=== PATIENT | female | born 1955 | race Caucasian/White ===

== ENCOUNTER → 2016-04-20 | Outpatient (CLI) | payer BC ==
[2014-02-15 15:44] VITALS: BP 120/65
[~2016-04-20] MED LIST: ASPI81TA50 PO; ATOR40TA59 PO; CEFU500T PO; CHOL10003 PO; FERR-26 PO; FURO-68 PO; LEVO150T PO; METO100T5 PO; NABU750T PO; NIFE30TA38 PO; OXYC-323 PO; PRAV80TA2 PO; WARF5TAB PO
--- NOTE | 2016-04-20 14:54 | EKG ---
[facility] [address] [place] [address] Test Date: 2016-04-20 Test Time: 15:01:05 Pat Name: LEON RUSS Department: Room: Gender: F Global Clinical Leader: JOHANA : 1955 Requested By: AIME CASILLAS Order Number: [id number] Reading MD: Tyler Tian Measurements Intervals [place] Rate: 70 P: 8 FL: 168 QRS: -10 QRSD: 84 T: -16 QT: 366 QTc: 398 Interpretive Statements SINUS RHYTHM CONSISTENT WITH INFERIOR INFARCT, probably old. Electronically Signed On 04-23-2016 14:32:58 LPN PRIVATE DUTY by Tyler Tian
[2016-04-20 15:28] LABS: BASO # 0.1 x10^3/uL (0.0-0.2); BASO % 1 % (0-3); EOS % 2 % (0-3); HEMATOCRIT 45.3 % (36.0-47.0); HEMOGLOBIN 14.3 g/dL (12.0-15.5); LYMPH # 2.8 x10^3/uL (1.0-4.8); LYMPH % 29 % (24-48); MEAN CORPUSCULAR HEMOGLOBIN 27 pg (25-35); MEAN CORPUSCULAR HGB CONC 32 g/dL (31-37); MEAN CORPUSCULAR VOLUME 87 fL (79-100); MONO % 9 % (0-9); NEUT % 60 % (31-73); PLATELET COUNT 267 x10^3/uL (140-400); RED BLOOD COUNT 5.22 x10^6/uL (3.50-5.40); RED CELL DISTRIBUTION WIDTH 15.1 % (11.5-14.5); WHITE BLOOD COUNT 9.6 x10^3/uL (4.0-11.0)
[2016-04-20 15:31] LABS: ALBUMIN 4.5 g/dL (3.4-5.0); CREATININE 1.3 mg/dL (0.6-1.0); GFR 41.5; POTASSIUM 3.9 mmol/L (3.5-5.1)
[2016-04-20 15:34] LABS: BILIRUBIN,URINE NEGATIVE (NEG); GLUCOSE,URINE NEGATIVE (NEG); NITRITE,URINE NEGATIVE (NEG); PH,URINE 5.5; PROTEIN,URINE NEGATIVE (NEG-TRACE); UROBILINOGEN,URINE 0.2 mg/dL (0.2 mg/dL)
[2016-04-20 15:39] LABS: PROTHROMBIN TIME PATIENT 12.8 SEC (11.7-14.0)
[2016-04-20 15:47] LABS: BACTERIA,URINE FEW /HPF (0-FEW); RBC,URINE 0 /HPF (0-2); SQUAMOUS EPITHELIAL CELL,UR FEW /LPF
--- NOTE | 2016-04-20 16:31 | RAD ---
INDICATION: Preoperative evaluation for surgery COMPARISON: None. FINDINGS: Single view of chest obtained. No focal airspace consolidation. Mediastinal contour is unremarkable. No gross osseous destructive lesion. Leads are seen within the central canal within the thoracic region. Degenerative changes of spine. Calcific atherosclerosis. IMPRESSION: No focal airspace consolidation or edema.
== END | disposition home or self-care (01) ==
LOC: SURGPAT 13:41
PROVIDERS: ATTEND Orthopaedic Surgery
DX: Z01.818 Encounter for other preprocedural examination (principal); M17.11 Unilateral primary osteoarthritis, right knee; M47.899 Other spondylosis, site unspecified; I70.90 Unspecified atherosclerosis; Z96.651 Presence of right artificial knee joint
CPT/HCPCS: 36415; 71020; 80048; 81001; 82040; 85027; 85610; 85730; 87086; 87641; 93005

== ENCOUNTER → 2016-05-12 | Outpatient (CLI) | payer BC ==
[~2016-05-12] MED LIST changes: +ASPI325T11 PO
--- NOTE | 2016-05-12 11:34 | CARD ---
APPROVED REPORT EXAM: Two-dimensional and M-mode echocardiogram with Doppler and color Doppler. Other Information Quality : Average Rhythm : NSR INDICATION Cardiac Disease: CAD 2D DIMENSIONS RVDd2.8 (2.9-3.5cm)Left Atrium(2D)3.5 (1.6-4.0cm) IVSd1.1 (0.7-1.1cm)Aortic Root(2D)2.7 (2.0-3.7cm) LVDd4.5 (3.9-5.9cm)LVOT Diameter2.0 (1.8-2.4cm) PWd1.0 (0.7-1.1cm)LVDs3.3 (2.5-4.0cm) FS (%) 26.0 %SV47.3 ml LVEF(%)51.2 (>50%) Aortic Valve AoV Peak Shay.149.1cm/sAoV VTI27.6cm AO Peak GR.8.9mmHgLVOT Peak Shay.95.4cm/s LVOT VTI 20.53cmAO Mean GR.5mmHg ANNELIESE (VMAX)2.45kt6GCL (VTI)2.35cm2 Mitral Valve MV E Oxzwxfbj64.3cm/sMV DECEL CMFY993gr MV A Suudcsus04.8cm/sMV E Mean Gr.2mmHg MV SYW02laB/A Ratio0.7 MV A Ezitlbxj442wdTFI (PHT)2.77cm2 TDI E/Lateral E'9.2E/Medial E'6.7 Pulmonary Valve PV Peak Bvfexozt068.6cm/sPV Peak Grad.4mmHg RVOT VTI19.4cm Tricuspid Valve TR P. Gyaleetb133qc/sRAP JWBNEHKD1kiGx TR Peak Gr.32dzIdBCNG44acNr Pulmonary Vein S1 Gyzacssd49.3cm/sD2 Mzgujray46.1cm/s LEFT VENTRICLE The left ventricle is normal size. There is borderline concentric left ventricular hypertrophy. Left ventricle systolic function is normal. The Ejection Fraction is 50-55%. There is normal LV segmental wall motion. Tissue Doppler imaging reveals mild left ventricular diastolic dysfunction. Transmitral Doppler flow pattern is Grade I-abnormal relaxation pattern. RIGHT VENTRICLE The right ventricle is normal size. The right ventricular systolic function is normal. ATRIA The left atrium size is normal. The right atrium size is normal. The interatrial septum is intact wit h no evidence for an atrial septal defect or patent foramen ovale as noted on 2-D or Doppler imaging. AORTIC VALVE The aortic valve is normal in structure and function. The aortic valve is trileaflet. Doppler and Col or Flow revealed no significant aortic regurgitation. There is no significant aortic valvular stenosi s. MITRAL VALVE The mitral valve is normal in structure and function. There is no mitral valve stenosis. Doppler and Color Flow revealed no mitral valve regurgitation noted. TRICUSPID VALVE The tricuspid valve is not well visualized. Doppler and Color Flow revealed mild tricuspid regurgitat ion. The PA pressure was estimated at 40 mmHg. There is no tricuspid valve stenosis. PULMONIC VALVE The pulmonic valve is not well visualized. Doppler and Color Flow revealed no pulmonic valvular regur gitation. There is no pulmonic valvular stenosis. GREAT VESSELS The aortic root is normal in size. Normal pulmonary venous flow (Doppler). The IVC is normal in size and collapses >50% with inspiration. PERICARDIAL EFFUSION There is no evidence of significant pericardial effusion. Critical Notification Critical Value: No <Conclusion> The left ventricle is normal size. Left ventricle systolic function is normal. The Ejection Fraction is 50-55%. There is borderline concentric left ventricular hypertrophy. There is no significant aortic valvular stenosis. Doppler and Color Flow revealed no significant aortic regurgitation. Doppler and Color Flow revealed no mitral valve regurgitation noted. Doppler and Color Flow revealed mild tricuspid regurgitation. The PA pressure was estimated at 40 mmHg.
== END | disposition home or self-care (01) ==
LOC: ECHO 10:00
PROVIDERS: ATTEND Internal Medicine Cardiovascular Disease
DX: I25.10 Atherosclerotic heart disease of native coronary artery without angina pectoris (principal); I07.1 Rheumatic tricuspid insufficiency
CPT/HCPCS: 93306

== ENCOUNTER 2016-05-13 08:04 | Inpatient (IN) | payer BC ==
--- NOTE | 2016-05-12 11:26 | PDOC1 ---
History and Physical Date of Admission Date of Admission DATE: 05/13/16 Identification/Chief Complaint Chief Complaint right knee osteoarthritis pain Source Source: Chart review History of Present Illness History of Present Illness Lucinda has come into the office today with concerns regarding her Right Knee pain. She has been experiencing pain in that right knee for many years. Over the years is has become increasingly worse. She has pain in her medial right knee. The pain is constant when she is walking. Sitting does feel better. Stairs are very difficult. She is stiff early in the morning, but has not noticed any change in her pain with the weather. The pain begins in the medial Right knee however seems to radiate throughout her entire leg. She has tried to alleviate the pain with anti-inflammatory medications with some relief but not a lot. She takes Relafen. She finished a series of Orthovisc injections into the right knee with Dr. Vega in 2009. She had injections in her right knee with Dr. Pastor years ago. She has a history of Left Total Knee Arthroplasty in 2013. Past Medical History Cardiovascular: HTN, Hyperlipidemia Endocrine: Hypothyroidism Past Surgical History Past Surgical History: Cholecystectomy, Total knee replacement (left - 2003), Other (L5-S1 fusion-2014, spinal column stimulator-2006) Family History Family History: Alzheimer's Disease, Cancer (leukemia), Stroke Social History Smoke: No ALCOHOL: none Drugs: None Current Medications Current Medications Current Medications Morphine Sulfate/ Ketorolac Tromethamine/ Ropivacaine/ Epinephrine HCl/ Sodium Chloride (Morphine 5mg Syringe/Toradol/ Naropin 0.5%/ Adrenalin/Iv Sodium Chloride 0.9% 100ml) 100.5 ml @ 100.5 mls/ hr 1X PERIOP ONCE INT ART ; Start 05/13/16 at 06:00; Stop 05/13/16 at 06:59 Active Scripts Active Reported Atorvastatin Calcium 40 Mg Tablet 1 Tab PO DAILY Lasix (Furosemide) 40 Mg Tablet 40 Mg PO DAILY Last dose given: 8:30 a.m. Next dose due: 02-16-14 8:30 a.m. Ferrous Sulfate 325 Mg Tablet 325 Mg PO BID Last dose given: 8:30 a.m. Next dose due: Take with next meal Continue taking until follow-up appt. with Dr. Duarte (Aspirin) 81 Mg Tablet.dr 81 Mg PO HS Last dose given: 8:30 a.m. Next dose due: 02-16-14 8:30 a.m. Adalat Cc (Nifedipine) 30 Mg Tablet.er 90 Mg PO HS Last dose given: 02-15-14 9:00 p.m. Next dose due: Tonight Synthroid (Levothyroxine Sodium) 150 Mcg Tablet 150 Mcg PO HS Last dose given: 01-16-14 9:00 p.m. Next dose due: Tonight Nabumetone 750 Mg Tablet 750 Mg PO HS Last dose given: 01-16-14 9:00 p.m. Next dose due: Tonight Toprol Xl (Metoprolol Succinate) 100 Mg Tab.er.24h 200 Mg PO HS Last dose given: 01-16-14 9:00 p.m. Next dose due: Tonight Allergies Allergies: Coded Allergies: Sulfa (Sulfonamide Antibiotics) (Verified Allergy, Intermediate, HIVES, ) Physical Exam General: Alert, Oriented X3, Cooperative, No acute distress HEENT: Atraumatic, EOMI Lungs: Normal air movement Heart: RRR Abdomen: Soft Extremities: No clubbing, No cyanosis, Normal pulses, Other (The RIGHT knee shows her flexed knee gait (she keeps the right knee in flexion throughout the gait cycle). There is varus alignment. No masses. No detectable effusion. Tenderness on the joint lines. Range of motion is 5-115 degrees. There is crepitus with range of motion, and pain at the extremes of motion. The knee is stable to varus and valgus stress without subluxation or laxity. Muscle strength is normal (5/5) for quadriceps and hamstrings, and muscle tone is normal. The skin is normal with no scars, rashes, lesions or ulcers. Light touch sensation is intact. No edema and no varicosities. Dorsalis pedis pulse is intact and capillary refill is normal.The LEFT knee shows normal alignment, no masses and no effusion. No tenderness to palpation. Range of motion is 0-120 degrees, with typical total knee crepitus but no pain at the extremes of motion. The knee is stable to varus and valgus stress without subluxation or laxity. Muscle strength is normal (5/5) for quadriceps and hamstrings, and muscle tone is normal. The extensor mechanism is intact. The skin shows a well- healed midline scar from total knee arthroplasty. No drainage lesions or ulcers. Light touch sensation is intact. No edema and no varicosities. Dorsalis pedis pulse is intact and capillary refill is normal. ) Skin: No rashes, No breakdown, No significant lesion Neuro: Normal speech, Sensation intact Psych/Mental Status: Mental status NL, Mood NL Images Images IMAGING REPORT 45 PA weightbearing view of both knees, lateral, and patella view of the right knee. Clinical information: Chronic right knee pain Comparison : 2014 Findings Bones: Left total knee is present. No evidence of loosening, subsidence or other complication. The patella has been resurfaced. Joints: The right knee shows moderate to severe osteoarthritis with narrowing sclerosis and osteophyte formation. There are moderate multiple osteophytes, and all three compartments are affected. There is sclerosis. These are Kellgren Ivan grade 3 osteoarthritis changes. This has progressed slightly since 2014. Soft tissue: Normal. Impression: Severe osteoarthritis of the right knee. Left total knee arthroplasty which is unremarkable. Dictated and Signed Using Voice Recognition Software Jac Lindsey MD. IMAGING REPORT Joint survey, hips knees and ankles Clinical information: Preoperative for total knee arthroplasty Comparison: 2014 Findings Bones: The left knee had severe varus alignment in 2014 but now has a total knee arthroplasty in near-anatomic position. Spinal hardware is noted in the lumbar spine, and was present in 2014. The angle between the right hip-ankle mechanical axis and the femoral shaft is 5. The angle between the left hip- ankle mechanical axis and the femoral shaft is 5. The mechanical axis crosses medial to the center of the right knee indicating varus alignment. The mechanical axis crosses near the center, slightly medial of the left knee indicating proper or trace varus mechanical alignment. Joints: There is narrowing of the right knee joint medially. The left knee prosthetic joint shows normal joint spaces. The hips and ankles show minimal degenerative changes. Soft tissue: Normal. Impression: Varus alignment of the right knee. The difference between the mechanical axis and femoral shaft anatomic axis is 5 bilaterally. Dictated and Signed Using Voice Recognition Software Jac Lindsey MD VTE Prophylaxis Ordered VTE Prophylaxis Devices: Yes VTE Pharmacological Prophylaxi: Yes Assessment/Plan Assessment/Plan Dr. Lindsey and the patient discussed her knee pain and knee osteoarthritis. She has tried nonoperative treatment for some time now with injections, oral anti- inflammatories and she did do some physical therapy for the right knee when she had her left knee replaced. She is currently taking Relafen anti-inflammatory. Dr. Lindsey recommend total knee arthroplasty, due to her severe osteoarthritis, knee pain, and markedly abnormal gait. We discussed the risks and benefits of total knee arthroplasty, and the natural history of osteoarthritis of the knee. We discussed weight loss which would be beneficial to her knee. Her BMI is 37.4 , which seems safe enough to tolerate surgery. Perioperative risks would likely be high-risk for BMI greater than 40 (which it is not). We discussed the potential risks of infection, neurovascular injury, bleeding, blood clots, need for revision surgery, malalignment of the prosthesis, and even severe complications leading to amputation. We discussed anesthetic risks and the usual perioperative workup. She stated understanding of the risks, benefits, alternatives and desires to proceed with a right total knee arthroplasty at a mutually convenient date. She will need physical therapy postoperatively, to learn to walk normally again. Her is going to help her at home postoperatively. EVIN CANDELARIO May 12, 2016 11:26
[~2016-05-13] VITALS: Ht 167.6 cm; Wt 105.7 kg
[2016-05-13] VITALS (7 sets, daily range): BP systolic 134–171; BP diastolic 75–97
[~2016-05-13 08:04] MED LIST changes: -ASPI325T11 PO; +CEFAZOLIN 2GM PREMIX 50 ML IV PRN; +FENTANYL PF 100 MCG/2 ML VIAL. IV PRN; +HYDROCODONE/APAP 7.5/325MG TABLET. PO PRN; +HYDROMORPHONE 2 MG/ML VIAL. IV PRN; +IV RINGERS,LACTATED 1000ML 1,000 ML IV SCH; +LIDOCAINE 1% 1 ML SYRINGE. ID PRN; +MELOXICAM 7.5 MG TABLET PO PRN; +MORPHINE SULFATE 5 MG, KETOROLAC TROMETHAMINE 30 MG, ROPIVacaine 0.5% PF 60 ML, EPINEPH... INT ART ONE; +ONDANSETRON PF 4 MG/2 ML VIAL. IV PRN; +PROCHLORPERAZINE 10 MG/2 ML VIAL. IV PRN; +TRANEXAMIC ACID 1,000 MG in IV NS 50ML -- 1ST BAG INJ ONE; +TRANEXAMIC ACID 1,000 MG in IV NS 50ML -- 2ND BAG INJ ONE
[2016-05-13] MEDS ORDERED: FENTANYL PF 100 MCG/2 ML VIAL. ONE (09:48)
[2016-05-13] MEDS ORDERED: ONDANSETRON PF 4 MG/2 ML VIAL. ONE (09:48)
[2016-05-13] MEDS ORDERED: MIDAZOLAM HCL 2 MG/2 ML VIAL. ONE (09:48)
[2016-05-13] MEDS ORDERED: LIDOCAINE 2% 100 MG/5 ML DISP.SYRIN. ONE (09:48)
[2016-05-13] MEDS ORDERED: PROPOFOL 20 ML IV ONE (09:48)
[2016-05-13] MEDS ORDERED: DEXAMETHASONE SOD PHOS 20 MG/5 ML VIAL. ONE (09:48)
[2016-05-13] MEDS ORDERED: SEVOFLURANE 61 TO 120 MINUTES. IH ONE (09:48)
[2016-05-13] MEDS ORDERED: SCOPOLAMINE 1.5MG PATCH. TD SCH (10:27)
[2016-05-13] MEDS ORDERED: VANCOMYCIN 1 GM VIAL. ONE (12:35)
[2016-05-13] MEDS ORDERED: TOBRAMYCIN POWDER 1.2 GM VIAL. ONE (12:35)
--- NOTE | 2016-05-13 12:53 | PDOC4 ---
Operative Note Operative Note Date of Procedure: May 13, 2016 Pre-Op Diagnosis: Osteoarthritis right knee Post-Op Diagnosis: Osteoarthritis right knee Procedure: right total knee arthroplasty Surgeon: Aime Lindsey MD Ribbon Winder: Thania Jenkins PA-C Anesthesia: General EBL: 100 mL Specimens Obtained: right knee bone and soft tissue Complications: none Implant Company: [employer] Drains: Hemovac plus pain catheter Tourniquet time: 62 minutes Indications for Procedure: Arthritis pain unrelieved by nonoperative management. Findings: Severe osteoarthritis with bone on bone contact medially and at the patellofemoral joint Implants used: Size 4 right bicruciate stabilized Journey II BCS cobalt chrome femoral component, size 4 right Journey nonporous tibial baseplate, size 3-4 18 mm right Journey II BCS XLPE articular insert, 29 mm oval Zabrina II resurfacing patellar component Procedure in Detail: The patient was identified in the preoperative holding area, and the correct right extremity was marked by me. The patient was taken to the operating room where the patient was anesthetized by the Department of Anesthesia. Preoperative antibiotics were given intravenously. Tranexamic acid 1 g was given intravenously for intraoperative hemostasis. A "time-out" procedure was performed. The patient was positioned supine on the operative table with a tourniquet on the upper thigh. The limb was thoroughly prepped and draped in sterile fashion. An impervious stockinet and adhesive drape were used such that the skin was entirely covered. An Ellis leg isabel was used. The operating team wore personal exhaust-ventilated hoods. The tourniquet was inflated to 350 mm Hg. A midline skin incision was made with a scalpel using the patella and tibial tubercle as landmarks. Electrocautery was used for hemostasis. My carpenter assistant installer used rake retractors. A medial parapatellar arthrotomy incision was used with extension into the distal quadriceps tendon. The patella was retracted laterally and Hohmann retractors were now used by my carpenter assistant installer. Excess synovium, the menisci, and the cruciate ligaments were resected sharply. The patella was assessed and excess synovium and osteophytes around the patellar articulation were removed. The patella was measured with a caliper, cut freehand with a saw using caliper measurements, sized, and then drilled for an oval three-pegged patella component. Periarticular injection was used in the suprapatellar pouch and distal quadriceps muscle. Mirza's line was assessed on the femur. An intra-medullary 5 degree cutting guide was pinned to the femur, and a distal femoral cut was made with an oscillating saw. An additional 2 mm resection was used due to the deep femoral sulcus, and deficient condyle.My carpenter assistant installer held Hohmann retractors and an [facility] retractor to protect the medial and lateral collateral ligaments, the patellar tendon, the skin and the other soft tissues. An anterior referencing guide was applied with external rotation of 4 to match Whitesides line. A 5-in-1 Journey II cutting guide was then applied and pinned to the femur. The posterior, anterior, and all chamfer cuts were made with the oscillating saw. An extramedullary guide was pinned to the tibia and rotational alignment and the planned resection thickness assessed. An external alignment paulo was used to verify the planned cut in the varus-valgus plane and regarding posterior slope referencing the tibial tubercle, the tibial shaft, the ankle joint, and the second metatarsal. The upper tibia was cut made with an oscillating saw. My carpenter assistant installer held Hohmann retractors and a posterior cruciate ligament retractor to protect the medial and lateral collateral ligaments, the patellar tendon, the skin, the peroneal nerve and the other soft tissues. The upper tibia was sized with a trial baseplate. The posterior compartment was cleared of osteophytes and loose bodies, and posterior capsule released. Loretta-articular injection was used in the posterior compartment. The box cut for a posterior stabilized component was made. A preliminary reduction was performed with a trial femur, trial tibial baseplate and trial polyethylene. Soft-tissue balancing was now performed, and extension and rotation of the alignments was checked using a guide paulo in the tibial trial and a guide pin in the femur. A medial release was required, using a 10 blade scalpel, and a Sanchez elevator to elevate the medial structures from the upper medial tibia. The stability was assessed using different thicknesses of tibial articular surface to find satisfactory stability and good range of motion. The rotation of the tibial component was marked on the upper tibia. Final trial reduction was now performed verifying patella tracking and tibiofemoral stability and alignment. The tibia preparation was completed with a drill, saw, and fin punch at the previously noted rotation. The final implants were verified and opened. Outer gloves were changed by the operating team. The bone cuts were washed thoroughly with the Stevenson InterPulse device and dried. Two packages of Palacos bone cement were mixed in powdered form with 1 gm of Vancomycin and 1.2 g tobramycin, then vacuum-mixed with the monomer, and placed into a cement gun. The cut surfaces of the bone were thoroughly dried with Valencia-tip suction and with laparotomy sponges for cement interdigitation. The final components were cemented into place. The knee was kept at full extension while the cement hardened, and excess cement was removed. Tranexamic acid 1 g was redosed intravenously for additional intraoperative hemostasis. A final periarticular injection was used for pain relief. The tourniquet was released, and electrocautery was used for hemostasis. A final check of tegcg-sg-pdbqog and stability was made, and the polyethylene implant final size was chosen. The polyethylene implant was secured to the tibial baseplate, and the knee was reduced a final time. Thorough irrigation was used. Hemovac and pain catheter were used.The arthrotomy was closed with interrupted yrfela-ol-vhyji #1 PDS suture. The capsulotomy was then run with #1 STRATAFIX symmetric PDS plus. The subcutaneous tissues were closed with #2-0 Vicryl by my carpenter assistant installer. The skin was reapproximated with concha by my carpenter assistant installer. A bulky sterile dressing was applied. Needle and sponge counts were correct. AIME LINDSEY MD May 13, 2016 12:53
[2016-05-13] MEDS ORDERED: MORPHINE PF 5 MG/10 ML VIAL. ONE (12:54)
[2016-05-13] MEDS ORDERED: FENTANYL PF 100 MCG/2 ML VIAL. IV PRN ×2 (13:15)
[2016-05-13] MEDS ORDERED: MORPHINE SULFATE 2 MG/ML DISP.SYRIN. IV PRN (13:15)
[2016-05-13] MEDS ORDERED: METOCLOPRAMIDE HCL 10 MG/2 ML VIAL. IV PRN (13:15)
[2016-05-13] MEDS ORDERED: MORPHINE SULFATE 4 MG/ML DISP.SYRIN. IV PRN ×2 (13:15)
[2016-05-13] MEDS ORDERED: DEXTROSE 50% 25 GM / 50ML DISP.SYRIN. IV PRN (13:15)
[2016-05-13] MEDS ORDERED: OXYCODONE/APAP 5/325 TABLET. PO PRN (13:15)
[2016-05-13] MEDS ORDERED: CALCIUM CARBONATE 500 MG TAB.CHEW PO PRN (13:15)
[2016-05-13] MEDS ORDERED: TRAMADOL 50 MG TABLET. PO PRN ×2 (13:15)
[2016-05-13] MEDS ORDERED: PROCHLORPERAZINE 5 MG TABLET. PO PRN (13:15)
[2016-05-13] MEDS ORDERED: ZOLPIDEM 5 MG TABLET. PO PRN (13:15)
[2016-05-13] MEDS ORDERED: PROCHLORPERAZINE 10 MG/2 ML VIAL. IV PRN (13:15)
[2016-05-13] MEDS ORDERED: DIPHENHYDRAMINE 50 MG/ML VIAL IV PRN (13:15)
[2016-05-13] MEDS ORDERED: ACETAMINOPHEN 325 MG TABLET. PO PRN (13:15)
[2016-05-13] MEDS ORDERED: MORPHINE SULFATE 10 MG/ML VIAL. IV PRN (13:15)
[2016-05-13] MEDS ORDERED: 0.9 % SODIUM CHLORIDE 10 ML DISP.SYRIN. IV PRN (13:15)
[2016-05-13] MEDS: FENTANYL PF 100 MCG/2 ML VIAL. IV PRN ×3 (13:27→14:06)
[2016-05-13] MEDS: MORPHINE SULFATE 2 MG/ML DISP.SYRIN. IV PRN ×3 (13:34→13:59)
--- NOTE | 2016-05-13 14:14 | RAD ---
EXAM: Right knee, 2 views HISTORY: Right knee arthroplasty. COMPARISON: None. FINDINGS: There are changes of tricompartmental arthroplasty in near-anatomic alignment. No fractures are identified. Soft tissue gas, skin concha and a drain are noted. IMPRESSION: 1. Right total knee arthroplasty in expected alignment.
[2016-05-13] MEDS ORDERED: IV DEXTROSE 5 %-0.45 % NACL 1,000 ML IV SCH (15:30)
[2016-05-13] MEDS ORDERED: INFLUENZA VAX SCREEN BY RX. MC ONE (15:45)
[2016-05-13] MEDS: FERROUS SULFATE 325 MG TABLET PO SCH (17:00)
[2016-05-13] MEDS: CEFAZOLIN 2GM PREMIX 50 ML IV SCH ×2 (17:53→23:07)
[2016-05-13] MEDS: KETOROLAC TROMETHAMINE 30 MG, BUPIVACAINE MPF 0.25% 20 ML, EPINEPHRINE 0.5 MG in TOTAL ... INT ART SCH (17:53)
[2016-05-13] MEDS: HYDROCODONE/APAP 7.5/325MG TABLET. PO PRN (17:54)
[2016-05-13] MEDS: ATORVASTATIN CALCIUM 40 MG TABLET. PO SCH (20:52)
[2016-05-13] MEDS: ASPIRIN ENTERIC COATED 325 MG TABLET.DR. PO SCH (20:52)
[2016-05-13] MEDS: NIFEDIPINE ER 30 MG TAB.ER.24H PO SCH (20:53)
[2016-05-13] MEDS: LEVOTHYROXINE 150 MCG TABLET PO SCH (20:53)
[2016-05-13] MEDS: METOPROLOL SUCC 24HR ER 100 MG TAB.ER.24H. PO SCH (20:56)
[2016-05-14 03:26] VITALS: BP 178/69
[2016-05-14] MEDS: CEFAZOLIN 2GM PREMIX 50 ML IV SCH (04:53)
[2016-05-14] MEDS: KETOROLAC TROMETHAMINE 30 MG, BUPIVACAINE MPF 0.25% 20 ML, EPINEPHRINE 0.5 MG in TOTAL ... INT ART SCH (04:54)
[2016-05-14 05:39] LABS: HEMATOCRIT 35.3 % (36.0-47.0); HEMOGLOBIN 11.4 g/dL (12.0-15.5); RED BLOOD COUNT 4.16 x10^6/uL (3.50-5.40); RED CELL DISTRIBUTION WIDTH 15.1 % (11.5-14.5); WHITE BLOOD COUNT 14.5 x10^3/uL (4.0-11.0)
[2016-05-14] MEDS ORDERED: MAGNESIUM HYDROXIDE 2,400 MG/30 ML ORAL.SUSP. PO PRN (06:00)
[2016-05-14 06:06] VITALS: BP 155/74
[2016-05-14] MEDS: FERROUS SULFATE 325 MG TABLET PO SCH ×2 (08:23→16:56)
[2016-05-14] MEDS: SENNOSIDES/DOCUSATE 8.6/50MG TABLET. PO SCH (08:23)
[2016-05-14] MEDS: ASPIRIN ENTERIC COATED 325 MG TABLET.DR. PO SCH ×2 (08:23→20:46)
[2016-05-14] MEDS: MELOXICAM 7.5 MG TABLET PO SCH (08:23)
[2016-05-14] MEDS: MULTIVITAMIN with MINERAL TABLET. PO SCH (08:23)
[2016-05-14] MEDS: HYDROCODONE/APAP 7.5/325MG TABLET. PO PRN ×2 (08:24→16:55)
[2016-05-14] MEDS: FUROSEMIDE 40 MG TABLET PO SCH (08:24)
[2016-05-14] MEDS ORDERED: FLU VACC QUAD 2016-17 (36MOS+)/PF 0.5 ML SYRINGE. VAX IM ONE (09:00)
[2016-05-14] MEDS: HYDROCODONE/APAP 10/325 TABLET. PO PRN (12:30)
[2016-05-14] MEDS ORDERED: BISACODYL 10 MG SUPP.RECT PR PRN (16:00)
--- NOTE | 2016-05-14 16:46 | PDOC ---
PROGRESS NOTES Subjective Subjective Doing well. Pain is controlled. Objective Vital Signs Vital Signs Date Time Temp Pulse Resp B/P Pulse Ox O2 Delivery O2 Flow Rate FiO2 05/14/16 13:30 Room Air 05/14/16 07:20 2.0 05/14/16 06:06 98.8 79 20 155/74 93 98.8 Physical Exam Sitting in recliner with legs elevated and ice pack on knee. Postop dressing dry and intact. Hemovac and pain catheter in place. Calf soft and nontender, with a negative Marce's sign. Good dorsiflexion and plantarflexion with no sign of neurovascular injury. Peripheral pulses and light touch sensation intact. Labs Laboratory Tests Test 05/13/16 08:50 05/14/16 05:20 Erythrocyte Sedimentation Rate 24 (0-25) White Blood Count 14.5x10^3/uL (4.0-11.0) Red Blood Count 4.16x10^6/uL (3.50-5.40) Hemoglobin 11.4g/dL (12.0-15.5) Hematocrit 35.3% (36.0-47.0) Mean Corpuscular Volume 85fL (79-100) Mean Corpuscular Hemoglobin 28pg (25-35) Mean Corpuscular Hemoglobin Concent 32g/dL (31-37) Red Cell Distribution Width 15.1% (11.5-14.5) Platelet Count 231x10^3/uL (140-400) Laboratory Tests Test 05/14/16 05:20 White Blood Count 14.5x10^3/uL (4.0-11.0) Red Blood Count 4.16x10^6/uL (3.50-5.40) Hemoglobin 11.4g/dL (12.0-15.5) Hematocrit 35.3% (36.0-47.0) Mean Corpuscular Volume 85fL (79-100) Mean Corpuscular Hemoglobin 28pg (25-35) Mean Corpuscular Hemoglobin Concent 32g/dL (31-37) Red Cell Distribution Width 15.1% (11.5-14.5) Platelet Count 231x10^3/uL (140-400) Imaging Postoperative x-rays were reviewed and show satisfactory total knee replacement without apparent complications. Assessment Assessment POD #1 TKA Problems: Plan Plan of Care Continue POC including DVT ppx and PT. If rest of stay goes uneventful, patient would like to be discharged tomorrow afternoon to home with outpatient PT. EVIN CANDELARIO May 14, 2016 16:46
[2016-05-14 18:07] VITALS: BP 146/72
[2016-05-14] MEDS: ATORVASTATIN CALCIUM 40 MG TABLET. PO SCH (20:46)
[2016-05-14] MEDS: LEVOTHYROXINE 150 MCG TABLET PO SCH (20:46)
[2016-05-14] MEDS: NIFEDIPINE ER 30 MG TAB.ER.24H PO SCH (20:49)
[2016-05-14] MEDS: METOPROLOL SUCC 24HR ER 100 MG TAB.ER.24H. PO SCH (20:49)
[2016-05-15] MEDS: HYDROCODONE/APAP 7.5/325MG TABLET. PO PRN (00:13)
[2016-05-15 06:00] VITALS: BP 113/61
[2016-05-15] MEDS: MULTIVITAMIN with MINERAL TABLET. PO SCH (07:29)
[2016-05-15] MEDS: FUROSEMIDE 40 MG TABLET PO SCH (07:29)
[2016-05-15] MEDS: FERROUS SULFATE 325 MG TABLET PO SCH (07:29)
[2016-05-15] MEDS: MELOXICAM 7.5 MG TABLET PO SCH (07:29)
[2016-05-15] MEDS: ASPIRIN ENTERIC COATED 325 MG TABLET.DR. PO SCH (07:29)
[2016-05-15] MEDS: HYDROCODONE/APAP 10/325 TABLET. PO PRN (07:30)
[2016-05-15] MEDS: SENNOSIDES/DOCUSATE 8.6/50MG TABLET. PO SCH (07:30)
[2016-05-15 11:09] LABS: HEMATOCRIT 33.3 % (36.0-47.0); HEMOGLOBIN 10.8 g/dL (12.0-15.5)
--- NOTE | 2016-05-15 12:16 | PDOC ---
PROGRESS NOTES Subjective Subjective Doing well. Having a better day today than yesterday regarding pain. Happy to be going home today. Objective Vital Signs Vital Signs Date Time Temp Pulse Resp B/P Pulse Ox O2 Delivery O2 Flow Rate FiO2 05/15/16 08:30 Room Air 05/15/16 07:40 2.0 05/15/16 06:00 98.6 95 20 113/61 96 98.6 Physical Exam Expected swelling. Pain catheter and drain have been removed. Dressing with spotty drainage only. Calf soft and nontender. Negative homans sign. Good AROM ankle. Peripheral pulses and light touch sensation intact. Labs Laboratory Tests Test 05/14/16 05:20 05/15/16 10:50 White Blood Count 14.5x10^3/uL (4.0-11.0) Red Blood Count 4.16x10^6/uL (3.50-5.40) Hemoglobin 11.4g/dL (12.0-15.5) 10.8g/dL (12.0-15.5) Hematocrit 35.3% (36.0-47.0) 33.3% (36.0-47.0) Mean Corpuscular Volume 85fL (79-100) Mean Corpuscular Hemoglobin 28pg (25-35) Mean Corpuscular Hemoglobin Concent 32g/dL (31-37) 32g/dL (31-37) Red Cell Distribution Width 15.1% (11.5-14.5) Platelet Count 231x10^3/uL (140-400) Laboratory Tests Test 05/15/16 10:50 Hemoglobin 10.8g/dL (12.0-15.5) Hematocrit 33.3% (36.0-47.0) Mean Corpuscular Hemoglobin Concent 32g/dL (31-37) Imaging X-rays independently reviewed by me and show satisfactory TKA alignment and no apparent complications. Assessment Assessment POD 2 TKA Problems: Plan Plan of Care Continue DVT prophylaxis and physical therapy. Planned discharge tomorrow to home, with outpatient PT. Office F/U in 10-14 days. AIME CASILLAS MD May 15, 2016 12:16
[2016-05-15] MEDS: OXYCODONE/APAP 7.5/325 TABLET. PO PRN ×2 (12:23→15:08)
--- NOTE | 2016-05-15 13:14 | PATHOLOGY ---
PATHOLOGY REPORT * * * * * * * * FINAL DIAGNOSIS: Segments of bone and soft tissue, right total knee arthroplasty: - Advanced degenerative arthritis. (JPM:csd; d/t: 05/15/2016) REPORT ELECTRONICALLY SIGNED BY: Kamar Powell M.D. DATE/TIME: 05/15/2016 13:13 * * * * * * * * GROSS PATHOLOGY: Received in formalin labeled "Lucinda Granda, right knee tissue," are multiple segments of bone, including tibial plateau, measuring 9.8 x 8.9 x 2.4 cm in aggregate dimensions admixed with soft tissue; meniscus is not present. The specimen shows focal eburnation of the articular surfaces. Talent Coordinator sections of bone and soft tissue are submitted in cassette A1, following decalcification. (CAA; 05/14/2016) INITIAL CPT CODE(S): A; 95675, 92367 Professional services [place] [facility] [place] [address] Technical services performed by [facility] at [address] [place] [address]. SPECIMEN(S) RECEIVED: A.Right knee tissue CLINICAL HISTORY: Right knee OA PATIENT: LUCINDA GRANDA /AGE: 6 1955 (Age: 60) PATIENT #: [id number] ALT CASE #: SPECIMEN COLLECTION DATE: 05/13/2016 SPECIMEN RECEIVED DATE: 05/13/2016 [facility] - [address] [place] [address] - PHONE: [phone] * * * END OF REPORT * * *
[2016-05-15 14:30] VITALS: BP 152/78
[2016-05-15] MEDS ORDERED: FERR-26 PO (14:45)
[2016-05-15] MEDS ORDERED: OXYC-323 PO (14:45)
[2016-05-15] MEDS ORDERED: ASPI325T11 PO (14:45)
--- NOTE | 2016-05-15 19:58 | PDOC3 ---
Discharge Summary Visit Information Date of Admission: May 13, 2016 Date of Discharge: May 15, 2016 Admitting Diagnosis: right knee osteoarthritis pain Final Diagnosis Problems Medical Problems: (1) Osteoarthritis of right knee Status: Acute Brief Hospital Course Allergies Allergies Coded Allergies Type Severity Reaction Last Updated Verified Sulfa (Sulfonamide Antibiotics) Allergy Intermediate HIVES 05/13/16 Yes Vital Signs Vital Signs Date Time Temp Pulse Resp B/P Pulse Ox O2 Delivery O2 Flow Rate FiO2 05/15/16 15:08 20 94 Room Air 05/15/16 14:30 97.5 86 152/78 97.5 05/15/16 07:40 2.0 Lab Results Laboratory Tests Test 05/14/16 05:20 05/15/16 10:50 White Blood Count 14.5x10^3/uL (4.0-11.0) Red Blood Count 4.16x10^6/uL (3.50-5.40) Hemoglobin 11.4g/dL (12.0-15.5) 10.8g/dL (12.0-15.5) Hematocrit 35.3% (36.0-47.0) 33.3% (36.0-47.0) Mean Corpuscular Volume 85fL (79-100) Mean Corpuscular Hemoglobin 28pg (25-35) Mean Corpuscular Hemoglobin Concent 32g/dL (31-37) 32g/dL (31-37) Red Cell Distribution Width 15.1% (11.5-14.5) Platelet Count 231x10^3/uL (140-400) Laboratory Tests Test 05/15/16 10:50 Hemoglobin 10.8g/dL (12.0-15.5) Hematocrit 33.3% (36.0-47.0) Mean Corpuscular Hemoglobin Concent 32g/dL (31-37) Brief Hospital Course 60 year old female who presented with knee osteoarthritis, for elective total knee arthroplasty. The patient underwent total knee arthroplasty under general anesthesia the day of admission. Perioperative antibiotics and DVT prophylaxis were used. Postoperatively physical therapy and case management were consulted. The patient progressed and is stable for discharge. Discharge Information Condition at Discharge: Stable Follow Up: Weeks (2) Disposition/Orders: D/C to Home Scheduled Aspirin (Aspirin Ec) 1 TAB PO BID (Reported) Atorvastatin Calcium (Atorvastatin Calcium) 1 TAB PO DAILY (Reported) Ferrous Sulfate (Ferrous Sulfate) 325 MG PO BID (Reported) Furosemide (Lasix) 40 MG PO DAILY (Reported) Levothyroxine Sodium (Synthroid) 150 MCG PO HS (Reported) Metoprolol Succinate (Toprol Xl) 200 MG PO HS (Reported) Nabumetone (Nabumetone) 750 MG PO HS (Reported) Nifedipine (Adalat Cc) 90 MG PO HS (Reported) Oxycodone/Apap 5-325 (Percocet 5-325 Mg Tablet) 1-2 TAB PO Q4-6HRS (Reported) Discontinued Medications Aspirin (Aspir-Low) 81 MG PO HS (Reported) Ferrous Sulfate (Ferrous Sulfate) 1 TAB PO DAILY (Reported) Patient Instructions Patient Instructions Patient Instructions Continue to WBAT with walker. Keep dressing dry and intact. F/U with [facility] in 10-14 days. Call for appointment. Physical therapy for TKA Continue DVT prophylaxis. EVIN CANDELARIO May 15, 2016 19:58
== END 2016-05-15 15:30 | disposition home or self-care (01) | DRG 470 ==
LOC: OPSVCIP 08:04 → 4 SOUTHEST 14:30
PROVIDERS: ADMIT Orthopaedic Surgery; ATTEND Orthopaedic Surgery
PROC: 0SRC0J9 Replacement of Right Knee Joint with Synthetic Substitute, Cemented, Open Approach (ICD-10-PCS; principal; 2016-05-13 10:15)
DX: M17.11 Unilateral primary osteoarthritis, right knee (principal); E03.9 Hypothyroidism, unspecified; I10 Essential (primary) hypertension; Z96.652 Presence of left artificial knee joint; E78.5 Hyperlipidemia, unspecified; Z68.37 Body mass index [BMI] 37.0-37.9, adult; Z80.6 Family history of leukemia; Z82.0 Family history of epilepsy and other diseases of the nervous system; Z90.49 Acquired absence of other specified parts of digestive tract; Z82.3 Family history of stroke; Z79.899 Other long term (current) drug therapy; Z88.2 Allergy status to sulfonamides
CPT/HCPCS: 36415; 73560; 85014; 85018; 85027; 85651; 86850; 86900; 86901; 90686; C1713; J0171; J0690; J1100; J1885; J2250; J2270; J2405; J2704; J2795; J3010; J3260; J3370; J3490; J7030; J7120; 97116; 97150; 97530; 97535; C1769

== ENCOUNTER 2016-08-27 18:00 | Inpatient (IN) | payer BC ==
[~2016-08-27] VITALS: Ht 165.1 cm; Wt 102.3 kg
[~2016-08-27 18:00] MED LIST changes: +ASPI325T11 PO; -CEFAZOLIN 2GM PREMIX 50 ML IV PRN; -FENTANYL PF 100 MCG/2 ML VIAL. IV PRN; -HYDROCODONE/APAP 7.5/325MG TABLET. PO PRN; -HYDROMORPHONE 2 MG/ML VIAL. IV PRN; -IV RINGERS,LACTATED 1000ML 1,000 ML IV SCH; -LIDOCAINE 1% 1 ML SYRINGE. ID PRN; -MELOXICAM 7.5 MG TABLET PO PRN; -MORPHINE SULFATE 5 MG, KETOROLAC TROMETHAMINE 30 MG, ROPIVacaine 0.5% PF 60 ML, EPINEPH... INT ART ONE; -ONDANSETRON PF 4 MG/2 ML VIAL. IV PRN; -PROCHLORPERAZINE 10 MG/2 ML VIAL. IV PRN; -TRANEXAMIC ACID 1,000 MG in IV NS 50ML -- 1ST BAG INJ ONE; -TRANEXAMIC ACID 1,000 MG in IV NS 50ML -- 2ND BAG INJ ONE; +WARF-78 PO; -WARF5TAB PO
[2016-08-27] MEDS ORDERED: IV NORMAL SALINE 1000ML BAG 1,000 ML IV SCH ×2 (19:00→21:30)
[2016-08-27] MEDS ORDERED: KETOROLAC TROMETHAMINE 30 MG/ML INJ. IV ONE (19:00)
[2016-08-27] MEDS ORDERED: ONDANSETRON PF 4 MG/2 ML VIAL. IV ONE (19:00)
[2016-08-27 19:14] LABS: BILIRUBIN,URINE NEGATIVE (NEG); GLUCOSE,URINE NEGATIVE (NEG); NITRITE,URINE NEGATIVE (NEG); PH,URINE 5.5; PROTEIN,URINE NEGATIVE (NEG-TRACE); UROBILINOGEN,URINE 0.2 mg/dL (0.2 mg/dL)
[2016-08-27 19:14] LABS: BASO # 0.1 x10^3/uL (0.0-0.2); BASO % 1 % (0-3); EOS % 2 % (0-3); HEMATOCRIT 42.2 % (36.0-47.0); HEMOGLOBIN 13.7 g/dL (12.0-15.5); LYMPH # 2.3 x10^3/uL (1.0-4.8); LYMPH % 20 % (24-48); MEAN CORPUSCULAR HEMOGLOBIN 27 pg (25-35); MEAN CORPUSCULAR HGB CONC 32 g/dL (31-37); MEAN CORPUSCULAR VOLUME 83 fL (79-100); MONO % 9 % (0-9); NEUT % 68 % (31-73); PLATELET COUNT 273 x10^3/uL (140-400); RED BLOOD COUNT 5.09 x10^6/uL (3.50-5.40); RED CELL DISTRIBUTION WIDTH 15.2 % (11.5-14.5); WHITE BLOOD COUNT 11.3 x10^3/uL (4.0-11.0)
[2016-08-27] MEDS: fentaNYL PF VIAL 100 MCG/2 ML VIAL IV PRN ×2 (19:26→22:13)
[2016-08-27 19:31] LABS: BACTERIA,URINE MODERATE /HPF (0-FEW); RBC,URINE >40 /HPF (0-2); SQUAMOUS EPITHELIAL CELL,UR MOD /LPF
[2016-08-27 19:32] LABS: CALCIUM 9.7 mg/dL (8.5-10.1); CREATININE 1.3 mg/dL (0.6-1.0); GFR 41.4; POTASSIUM 3.9 mmol/L (3.5-5.1)
--- NOTE | 2016-08-27 19:33 | RAD ---
CT ABDOMEN PELVIS WO CONTRAST dated 08/27/2016 7:00 PM Indication: Severe right lower quadrant pain since this morning. Right flank pain Comparison: No comparison is available. Technique: Contiguous axial imaging of the abdomen and pelvis performed without the administration of intravenous or oral contrast. One or more of the following individualized dose reduction techniques were utilized for this examination: 1. Automated exposure control 2. Adjustment of the mA and/or kV according to patient size 3. Use of iterative reconstruction technique Findings: Limited images of lung bases are clear. Minimal linear scar or atelectasis in the lingula and right middle lobe. Heart size upper limits of normal. Coronary artery calcifications. No pleural or pericardial effusion. Solid abdominal viscera not well evaluated in the absence of contrast material. No apparent attenuation abnormality of the liver or spleen. Pancreas, adrenal glands unremarkable. The gallbladder is surgically absent. 11 mm calcific stone at the proximal to mid right ureter with moderate right hydronephrosis and proximal ureteral dilation. No calcific stone within the substance of either kidney. No left ureteral stone or left hydronephrosis. Unopacified GI tract normal in caliber and contour. No focal bowel wall thickening. No inflammatory stranding in the mesentery. Scattered diverticula throughout the colon. No pericolonic inflammatory changes. No free fluid or lymphadenopathy. The appendix is normal in caliber. Images of pelvis a nondistended urinary bladder. No calcific bladder stone. Uterus and adnexa are unremarkable. No free fluid or lymphadenopathy. Bone windows show no acute findings. Multilevel spondylosis. IMPRESSION: 1. Prominent 11mm calcific stone at the proximal to mid right ureter with moderate obstructive uropathy. 2. Otherwise no acute findings. Normal appendix. 3. Status post cholecystectomy. 4. Diverticulosis. Electronically signed by: Alton Merrill MD (08/27/2016 7:30 PM)
[2016-08-27 19:38] LABS: ALBUMIN/GLOBULIN RATIO 0.9 (1.0-1.7); TOTAL BILIRUBIN 0.2 mg/dL (0.2-1.0); TOTAL PROTEIN 8.4 g/dL (6.4-8.2)
[2016-08-27] MEDS ORDERED: HYDROcodone/APAP 5/325MG 1 TAB TABLET PO PRN (21:15)
[2016-08-27] MEDS ORDERED: oxyCODONE/APAP 5/325 1 TAB TABLET PO PRN (21:15)
[2016-08-27] MEDS ORDERED: KETOROLAC 15 MG/ML VIAL. IV PRN (21:15)
--- NOTE | 2016-08-27 21:17 | PDOC1 ---
History and Physical Date of Admission Date of Admission DATE: 08/27/16 TIME: 21:12 Identification/Chief Complaint Chief Complaint R abd pain Problems: Source Source: Caregiver, Chart review, Patient History of Present Illness History of Present Illness 61 y.o obese female, very pleasant, acute onset R LQ pain and some back pain, no blood in urine, no angelina urine. Imaging showed 11 mm R stone with hydronephrosis and Creat 1,3 No prior hx kidney stones, Took some percocet at home (from her Rt knee OA 3 mos ago), pain scale of 6/10 came down to 4/10- and now 2/10 after IV pain med at ER,. Pt appears comfortable, has actually high pain tolerance. VErified with answering service urology, they will be available for maya AM. NO nausea, emesis or fevers with the pain CT: I have personally reviewed: IMPRESSION: 1. Prominent 11mm calcific stone at the proximal to mid right ureter with moderate obstructive uropathy. 2. Otherwise no acute findings. Normal appendix. 3. Status post cholecystectomy. 4. Diverticulosis. Past Medical History Cardiovascular: HTN, Hyperlipidemia Endocrine: Hypothyroidism Past Surgical History Past Surgical History: Cholecystectomy, Total knee replacement, Other Family History Family History: Alzheimer's Disease, Cancer, Stroke Social History Smoke: No ALCOHOL: none Drugs: None Current Medications Current Medications Current Medications Fentanyl Citrate (Fentanyl 2ml Vial) 50 mcg PRN Q15MIN PRN IV PAIN GREATER THAN 3/10 Last administered on 08/27/16 19:26; Start 08/27/16 at 19:00; Stop at 18:59 Sodium Chloride 1,000 ml @ 1,000 mls/hr Q1H IV Last administered on 08/27/16 19:20; Start 08/27/16 at 19:00; Stop 08/27/16 at 19:59; Status DC Ondansetron HCl (Zofran) 4 mg 1X ONCE IV Last administered on 08/27/16 19:00 ; Start 08/27/16 at 19:00; Stop 08/27/16 at 19:07; Status DC Ketorolac Tromethamine (Toradol) 10 mg 1X ONCE IV Last administered on 19:25; Start 08/27/16 at 19:00; Stop 08/27/16 at 19:07; Status DC Ceftriaxone Sodium 50 ml @ 100 mls/hr 1X ONCE IV Last administered on t 20:00; Start 08/27/16 at 19:45; Stop 08/27/16 at 20:14; Status DC Active Scripts Active Reported Percocet 5-325 Mg Tablet (Oxycodone/Acetaminophen) 1 Each Tablet 1-2 Tab PO Q4- 6HRS last dose at 1515 may take next dose at 9pm Aspirin Ec (Aspirin) 325 Mg Tablet.dr 1 Tab PO BID last dose was this am next dose tonight with last meal Atorvastatin Calcium 40 Mg Tablet 1 Tab PO DAILY last dose last night next dose tonight Lasix (Furosemide) 40 Mg Tablet 40 Mg PO DAILY Last dose given: this am. Next dose due: tomorrow am Ferrous Sulfate 325 Mg Tablet 325 Mg PO BID Last dose given: 8:30 a.m. Next dose due: Take with next meal Continue taking until follow-up appt. with Dr. Abarca Cc (Nifedipine) 30 Mg Tablet.er 90 Mg PO HS Last dose given: last night at 9:00 p.m. Next dose due: Tonight Synthroid (Levothyroxine Sodium) 150 Mcg Tablet 150 Mcg PO HS Last dose given: last night at 9:00 p.m. Next dose due: Tonight Nabumetone 750 Mg Tablet 750 Mg PO HS Last dose given: last night at 9:00 p.m. Next dose due: Tonight Toprol Xl (Metoprolol Succinate) 100 Mg Tab.er.24h 200 Mg PO HS Last dose given: last night 9:00 p.m. Next dose due: Tonight Allergies Allergies: Coded Allergies: Sulfa (Sulfonamide Antibiotics) (Verified Allergy, Intermediate, HIVES, 05/13/16) ROS General: No: Chills, Night Sweats, Fatigue, Malaise, Appetite, Other PSYCHOLOGICAL ROS: No: Anxiety, Behavioral Disorder, Concentration difficultie , Decreased libido, Depression, Disorientation, Hallucinations, Hostility, Irritablity, Memory difficulties, Mood Swings, Obsessive thoughts, Physical abuse, Sexual abuse, Sleep disturbances, Suicidal ideation, Other Eyes: No Blurry vision, No Decreased vision, No Double vision, No Dry eyes, No Excessive tearing, No Eye Pain, No Itchy Eyes, No Loss of vision, No Photophobia , No Scotomata, No Uses contacts, No Uses glasses, No Other HEENT: No: Heacaches, Visual Changes, Hearing change, Nasal congestion, Nasal discharge, Oral lesions, Sinus pain, Sore Throat, Epistaxis, Sneezing, Snoring, Tinnitus, Vertigo, Vocal changes, Other ALLERGY AND IMMUNOLOGY: No: Hives, Insect Bite Sensitivity, Itchy/Watery Eyes, Nasal Congestion, Post Nasal Drip, Seasonal Allergies, Other Hematological and Lymphatic: No: Bleeding Problems, Blood Clots, Blood Transfusions, Brusing, Night Sweats, Pallor, Swollen Lymph Nodes, Other ENDOCRINE: No: Breast Changes, Galactorrhea, Hair Pattern Changes, Hot Flashes , Malaise/lethargy, Mood Swings, Palpitations, Polydipsia/polyuria, Skin Changes , Temperature Intolerance, Unexpected Weight Changes, Other Breast: No New/Changing Breast Lumps, No Nipple changes, No Nipple discharge, No Other Respiratory: No: Cough, Hemoptysis, Orthopnea, Pleuritic Pain, Shortness of breath, SOB with excertion, Sputum Changes, Stridor, Tachypnea, Wheezing, Other Cardiovascular: No Chest Pain, No Palpitations, No Orthopnea, No Paroxysmal Noc. Dyspnea, No Edema, No Lt Headedness, No Other Gastrointestinal: Yes Abdominal Pain Genitourinary: No Dysuria, No Frequency, No Incontinence, No Hematuria, No Retention, No Discharge, No Urgency, No Pain, No Flank Pain, No Other, No , No , No , No , No , No , No Musculoskeletal: No Gait Disturbance, No Joint Pain, No Joint Stiffness, No Joint Swelling, No Muscle Pain, No Muscular Weakness, No Pain In:, No Swelling In:, No Other Neurological: No Behavorial Changes, No Bowel/Bladder ControlChng, No Confusion , No Dizziness, No Gait Disturbance, No Headaches, No Impaired Coord/balance, No Memory Loss, No Numbness/Tingling, No Seizures, No Speech Problems, No Tremors, No Visual Changes, No Weakness, No Other Skin: No Dry Skin, No Eczema, No Hair Changes, No Lumps, No Mole Changes, No Mottling, No Nail Changes, No Pruritus, No Rash, No Skin Lesion Changes, No Other, No Acne Physical Exam General: Alert, Oriented X3, Cooperative, No acute distress HEENT: Atraumatic, PERRLA, EOMI Lungs: Clear to auscultation Heart: S1S2, RRR, no thrills, no rubs, no gallops, no murmurs Cardiovascular: S1, S2 Abdomen: Normal bowel sounds, Soft, No tenderness, No hepatosplenomegaly, No masses Rectal Exam: not examined PELVIC: Nml ext genitalia Extremities: No clubbing, No cyanosis, No edema, Normal pulses, No tenderness/ swelling Skin: No rashes, No breakdown, No significant lesion Neuro: Normal gait, Normal speech, Strength at 5/5 X4 ext, Normal tone, Sensation intact, Cranial nerves 3-12 NL, Reflexes 2+ Psych/Mental Status: Mental status NL, Mood NL Vitals Vitals Vital Signs Date Time Temp Pulse Resp B/P (MAP) Pulse Ox O2 Delivery O2 Flow Rate FiO2 08/27/16 20:06 70 20 152/87 (108) 93 Room Air 08/27/16 18:40 98.7 98.7 Labs Labs Laboratory Tests Test 08/27/16 18:40 08/27/16 19:00 Urine Collection Type Void Urine Color Yellow Urine Clarity Clear Urine pH 5.5 Urine Specific Icard 1.010 Urine Protein Negative mg/dL (NEG-TRACE) Urine Glucose (UA) Negative mg/dL (NEG) Urine Ketones (Stick) Negative mg/dL (NEG) Urine Blood Large (NEG) Urine Nitrite Negative (NEG) Urine Bilirubin Negative (NEG) Urine Urobilinogen Dipstick 0.2 mg/dL (0.2 mg/dL) Urine Leukocyte Esterase Small (NEG) Urine RBC >40 /HPF (0-2) Urine WBC 11-20 /HPF (0-4) Urine Squamous Epithelial Cells Mod /LPF Urine Bacteria Moderate /HPF (0-FEW) Urine Hyaline Casts Few /HPF Urine Mucus Slight /LPF White Blood Count 11.3 x10^3/uL (4.0-11.0) Red Blood Count 5.09 x10^6/uL (3.50-5.40) Hemoglobin 13.7 g/dL (12.0-15.5) Hematocrit 42.2 % (36.0-47.0) Mean Corpuscular Volume 83 fL (79-100) Mean Corpuscular Hemoglobin 27 pg (25-35) Mean Corpuscular Hemoglobin Concent 32 g/dL (31-37) Red Cell Distribution Width 15.2 % (11.5-14.5) Platelet Count 273 x10^3/uL (140-400) Neutrophils (%) (Auto) 68 % (31-73) Lymphocytes (%) (Auto) 20 % (24-48) Monocytes (%) (Auto) 9 % (0-9) Eosinophils (%) (Auto) 2 % (0-3) Basophils (%) (Auto) 1 % (0-3) Neutrophils # (Auto) 7.7 x10^3uL (1.8-7.7) Lymphocytes # (Auto) 2.3 x10^3/uL (1.0-4.8) Monocytes # (Auto) 1.1 x10^3/uL (0.0-1.1) Eosinophils # (Auto) 0.2 x10^3/uL (0.0-0.7) Basophils # (Auto) 0.1 x10^3/uL (0.0-0.2) Sodium Level 139 mmol/L (136-145) Potassium Level 3.9 mmol/L (3.5-5.1) Chloride Level 101 mmol/L (98-107) Carbon Dioxide Level 26 mmol/L (21-32) Anion Gap 12 (6-14) Blood Urea Nitrogen 19 mg/dL (7-20) Creatinine 1.3 mg/dL (0.6-1.0) Estimated GFR (Cockcroft-Gault) 41.4 BUN/Creatinine Ratio 15 (6-20) Glucose Level 110 mg/dL (70-99) Calcium Level 9.7 mg/dL (8.5-10.1) Total Bilirubin 0.2 mg/dL (0.2-1.0) Aspartate Amino Transf (AST/SGOT) 18 U/L (15-37) Alanine Aminotransferase (ALT/SGPT) 21 U/L (14-59) Alkaline Phosphatase 199 U/L (46-116) Total Protein 8.4 g/dL (6.4-8.2) Albumin 4.0 g/dL (3.4-5.0) Albumin/Globulin Ratio 0.9 (1.0-1.7) Laboratory Tests Test 08/27/16 18:40 08/27/16 19:00 Urine Collection Type Void Urine Color Yellow Urine Clarity Clear Urine pH 5.5 Urine Specific Icard 1.010 Urine Protein Negative mg/dL (NEG-TRACE) Urine Glucose (UA) Negative mg/dL (NEG) Urine Ketones (Stick) Negative mg/dL (NEG) Urine Blood Large (NEG) Urine Nitrite Negative (NEG) Urine Bilirubin Negative (NEG) Urine Urobilinogen Dipstick 0.2 mg/dL (0.2 mg/dL) Urine Leukocyte Esterase Small (NEG) Urine RBC >40 /HPF (0-2) Urine WBC 11-20 /HPF (0-4) Urine Squamous Epithelial Cells Mod /LPF Urine Bacteria Moderate /HPF (0-FEW) Urine Hyaline Casts Few /HPF Urine Mucus Slight /LPF White Blood Count 11.3 x10^3/uL (4.0-11.0) Red Blood Count 5.09 x10^6/uL (3.50-5.40) Hemoglobin 13.7 g/dL (12.0-15.5) Hematocrit 42.2 % (36.0-47.0) Mean Corpuscular Volume 83 fL (79-100) Mean Corpuscular Hemoglobin 27 pg (25-35) Mean Corpuscular Hemoglobin Concent 32 g/dL (31-37) Red Cell Distribution Width 15.2 % (11.5-14.5) Platelet Count 273 x10^3/uL (140-400) Neutrophils (%) (Auto) 68 % (31-73) Lymphocytes (%) (Auto) 20 % (24-48) Monocytes (%) (Auto) 9 % (0-9) Eosinophils (%) (Auto) 2 % (0-3) Basophils (%) (Auto) 1 % (0-3) Neutrophils # (Auto) 7.7 x10^3uL (1.8-7.7) Lymphocytes # (Auto) 2.3 x10^3/uL (1.0-4.8) Monocytes # (Auto) 1.1 x10^3/uL (0.0-1.1) Eosinophils # (Auto) 0.2 x10^3/uL (0.0-0.7) Basophils # (Auto) 0.1 x10^3/uL (0.0-0.2) Sodium Level 139 mmol/L (136-145) Potassium Level 3.9 mmol/L (3.5-5.1) Chloride Level 101 mmol/L (98-107) Carbon Dioxide Level 26 mmol/L (21-32) Anion Gap 12 (6-14) Blood Urea Nitrogen 19 mg/dL (7-20) Creatinine 1.3 mg/dL (0.6-1.0) Estimated GFR (Cockcroft-Gault) 41.4 BUN/Creatinine Ratio 15 (6-20) Glucose Level 110 mg/dL (70-99) Calcium Level 9.7 mg/dL (8.5-10.1) Total Bilirubin 0.2 mg/dL (0.2-1.0) Aspartate Amino Transf (AST/SGOT) 18 U/L (15-37) Alanine Aminotransferase (ALT/SGPT) 21 U/L (14-59) Alkaline Phosphatase 199 U/L (46-116) Total Protein 8.4 g/dL (6.4-8.2) Albumin 4.0 g/dL (3.4-5.0) Albumin/Globulin Ratio 0.9 (1.0-1.7) VTE Prophylaxis Ordered VTE Prophylaxis Devices: Yes VTE Pharmacological Prophylaxi: Yes Assessment/Plan Assessment/Plan 1. 11mm prox to mid R ureter stone with hydronephrosis 2. JONATHAN, obstructive uropathy 3. Obesity 4. Diverticulosis PLAn: Aggressive iVF PAin emds Urology consult NPO post MN REsume home meds except ASA COnt iV rocephin since urologic procedure Rechekc CBC and BMP 2 days from now Dw ER and pt and Seen aT ER JAIMIE MCKINNEY MD Aug 27, 2016 21:17
[2016-08-27] MEDS ORDERED: ONDANSETRON PF 4 MG/2 ML VIAL. IV PRN (21:30)
[2016-08-27] MEDS ORDERED: ACETAMINOPHEN 325 MG TABLET. PO PRN (21:30)
[2016-08-27] MEDS ORDERED: fentaNYL PF VIAL 100 MCG/2 ML VIAL IV PRN ×2 (21:30)
[2016-08-27] MEDS: LEVOTHYROXINE 150 MCG TABLET PO SCH (22:33)
[2016-08-27] MEDS: MELOXICAM 7.5 MG TABLET PO SCH (22:33)
[2016-08-27] MEDS: ATORVASTATIN CALCIUM 40 MG TABLET. PO SCH (22:34)
[2016-08-27] MEDS: METOPROLOL SUCC 24HR ER 100 MG TAB.ER.24H. PO SCH (22:34)
--- NOTE | 2016-08-27 22:51 | ED.ADGEN ---
Past Medical History Past Medical History: Hypertension Past Surgical History: Cholecystectomy, Knee Replacement, Other Additional Past Surgical Histo: L5S1 spinal fusion, spinal stimulator Alcohol Use: Rarely Drug Use: None Adult General Chief Complaint Chief Complaint: FLANK PAIN HPI HPI Patient is a 61 year old woman, history of hypertension, status post cholecystectomy, who presents emergency Department with a complaint of right flank pain developing into right abdominal pain that began last night. Patient describes the pain as fairly constant, initially in the right flank and back region, in the upper right abdominal region, now in the lower right abdomen. Denies any urinary complaints, states that she had one mild episode nausea but no vomiting, denies any fevers, any chills, any injuries, any chest pain or shortness breath, any weakness, numbness, tingling or similar symptoms previously. No history of renal calculi or renal colic. Review of Systems Review of Systems Constitutional: Denies fever or chills. [] Eyes: Denies change in visual acuity. [] HENT: Denies nasal congestion or sore throat. [] Respiratory: Denies cough or shortness of breath. [] Cardiovascular: Denies chest pain or edema. [] GI: Right flank abdominal pain, nausea. No vomiting, bloody stools or diarrhea. [] : Denies dysuria. [] Musculoskeletal: Denies back pain or joint pain. [] Integument: Denies rash. [] Neurologic: Denies headache, focal weakness or sensory changes. [] Endocrine: Denies polyuria or polydipsia. [] Lymphatic: Denies swollen glands. [] Psychiatric: Denies depression or anxiety. [] Current Medications Current Medications Current Medications Medications (Trade) Dose Ordered Sig/Debra Start Time Stop Time Status Last Admin Dose Admin Ceftriaxone Sodium 50 ml @ 100 mls/hr 1X ONCE 08/27/16 19:45 08/27/16 20:14 DC 08/27/16 20:00 100 MLS/HR Fentanyl Citrate (Fentanyl 2ml Vial) 50 mcg PRN Q15MIN PRN 08/27/16 19:00 08/28/16 18:59 08/27/16 22:13 50 MCG Ketorolac Tromethamine (Toradol) 10 mg 1X ONCE 08/27/16 19:00 08/27/16 19:07 DC 08/27/16 19:25 10 MG Ondansetron HCl (Zofran) 4 mg 1X ONCE 08/27/16 19:00 08/27/16 19:07 DC 08/27/16 19:00 4 MG Sodium Chloride 1,000 ml @ 1,000 mls/hr Q1H 08/27/16 19:00 08/27/16 19:59 DC 08/27/16 19:20 1,000 MLS/HR Allergies Allergies Allergies Coded Allergies Type Severity Reaction Last Updated Verified Sulfa (Sulfonamide Antibiotics) Allergy Intermediate HIVES 05/13/16 Yes Physical Exam Physical Exam Constitutional: Well developed, well nourished, no acute distress, non-toxic appearance. [] HENT: Normocephalic, atraumatic, bilateral external ears normal, oropharynx moist, no oral exudates, nose normal. [] Eyes: PERRLA, EOMI, conjunctiva normal, no discharge. [] Neck: Normal range of motion, no tenderness, supple, no stridor. [] Cardiovascular:Heart rate regular rhythm, no murmur, S1, S2, no rubs or gallops. [] Lungs & Thorax: Bilateral breath sounds clear to auscultation, no wheezing, rhonchi, rales. [] Abdomen: Bowel sounds normal, soft, mild tenderness palpation in the right upper and lower abdomen no masses, no pulsatile masses. [] Skin: Warm, dry, no erythema, no rash. [] Back: No tenderness, mild right-sided CVA tenderness. Extremities: No tenderness, no cyanosis, no clubbing, ROM intact, no edema. [] Neurologic: Alert and oriented X 3, normal motor function, normal sensory function, no focal deficits noted. [] Psychologic: Affect normal, judgement normal, mood normal. [] Current Patient Data Vital Signs Vital Signs Date Time Temp Pulse Resp B/P (MAP) Pulse Ox O2 Delivery O2 Flow Rate FiO2 08/27/16 19:30 74 20 163/82 (109) 98 Room Air 08/27/16 18:40 98.7 98.7 Lab Values Laboratory Tests Test 08/27/16 18:40 08/27/16 19:00 Urine Collection Type Void Urine Color Yellow Urine Clarity Clear Urine pH 5.5 Urine Specific [place] 1.010 Urine Protein Negative mg/dL (NEG-TRACE) Urine Glucose (UA) Negative mg/dL (NEG) Urine Ketones (Stick) Negative mg/dL (NEG) Urine Blood Large (NEG) Urine Nitrite Negative (NEG) Urine Bilirubin Negative (NEG) Urine Urobilinogen Dipstick 0.2 mg/dL (0.2 mg/dL) Urine Leukocyte Esterase Small (NEG) Urine RBC >40 /HPF (0-2) Urine WBC 11-20 /HPF (0-4) Urine Squamous Epithelial Cells Mod /LPF Urine Bacteria Moderate /HPF (0-FEW) Urine Hyaline Casts Few /HPF Urine Mucus Slight /LPF White Blood Count 11.3 x10^3/uL (4.0-11.0) H Red Blood Count 5.09 x10^6/uL (3.50-5.40) Hemoglobin 13.7 g/dL (12.0-15.5) Hematocrit 42.2 % (36.0-47.0) Mean Corpuscular Volume 83 fL (79-100) Mean Corpuscular Hemoglobin 27 pg (25-35) Mean Corpuscular Hemoglobin Concent 32 g/dL (31-37) Red Cell Distribution Width 15.2 % (11.5-14.5) H Platelet Count 273 x10^3/uL (140-400) Neutrophils (%) (Auto) 68 % (31-73) Lymphocytes (%) (Auto) 20 % (24-48) L Monocytes (%) (Auto) 9 % (0-9) Eosinophils (%) (Auto) 2 % (0-3) Basophils (%) (Auto) 1 % (0-3) Neutrophils # (Auto) 7.7 x10^3uL (1.8-7.7) Lymphocytes # (Auto) 2.3 x10^3/uL (1.0-4.8) Monocytes # (Auto) 1.1 x10^3/uL (0.0-1.1) Eosinophils # (Auto) 0.2 x10^3/uL (0.0-0.7) Basophils # (Auto) 0.1 x10^3/uL (0.0-0.2) Sodium Level 139 mmol/L (136-145) Potassium Level 3.9 mmol/L (3.5-5.1) Chloride Level 101 mmol/L (98-107) Carbon Dioxide Level 26 mmol/L (21-32) Anion Gap 12 (6-14) Blood Urea Nitrogen 19 mg/dL (7-20) Creatinine 1.3 mg/dL (0.6-1.0) H Estimated GFR (Cockcroft-Gault) 41.4 BUN/Creatinine Ratio 15 (6-20) Glucose Level 110 mg/dL (70-99) H Calcium Level 9.7 mg/dL (8.5-10.1) Total Bilirubin 0.2 mg/dL (0.2-1.0) Aspartate Amino Transferase (AST) 18 U/L (15-37) Alanine Aminotransferase (ALT) 21 U/L (14-59) Alkaline Phosphatase 199 U/L (46-116) H Total Protein 8.4 g/dL (6.4-8.2) H Albumin 4.0 g/dL (3.4-5.0) Albumin/Globulin Ratio 0.9 (1.0-1.7) L Laboratory Tests 08/27/16 19:00 Laboratory Tests 08/27/16 19:00 EKG EKG Not indicated. [] Radiology/Procedures Radiology/Procedures [][facility] [address] [place] [address] IMAGING REPORT Signed PATIENT: LEON RUSS ACCOUNT: [id number] : 1955 LOCATION: ER AGE: 61 SEX: F EXAM STATUS: REG ER ORD. PHYSICIAN: DARIUS RODRÍGUEZ DO REASON: R flank and abd pain PROCEDURE: CT ABDOMEN PELVIS WO CONTRAST CT ABDOMEN PELVIS WO CONTRAST dated 08/27/2016 7:00 PM Indication: Severe right lower quadrant pain since this morning. Right flank pain Comparison: No comparison is available. Technique: Contiguous axial imaging of the abdomen and pelvis performed without the administration of intravenous or oral contrast. One or more of the following individualized dose reduction techniques were utilized for this examination: 1. Automated exposure control 2. Adjustment of the mA and/or kV according to patient size 3. Use of iterative reconstruction technique Findings: Limited images of lung bases are clear. Minimal linear scar or atelectasis in the lingula and right middle lobe. Heart size upper limits of normal. Coronary artery calcifications. No pleural or pericardial effusion. Solid abdominal viscera not well evaluated in the absence of contrast material. No apparent attenuation abnormality of the liver or spleen. Pancreas, adrenal glands unremarkable. The gallbladder is surgically absent. 11 mm calcific stone at the proximal to mid right ureter with moderate right hydronephrosis and proximal ureteral dilation. No calcific stone within the substance of either kidney. No left ureteral stone or left hydronephrosis. Unopacified GI tract normal in caliber and contour. No focal bowel wall thickening. No inflammatory stranding in the mesentery. Scattered diverticula throughout the colon. No pericolonic inflammatory changes. No free fluid or lymphadenopathy. The appendix is normal in caliber. Images of pelvis a nondistended urinary bladder. No calcific bladder stone. Uterus and adnexa are unremarkable. No free fluid or lymphadenopathy. Bone windows show no acute findings. Multilevel spondylosis. IMPRESSION: 1. Prominent 11mm calcific stone at the proximal to mid right ureter with moderate obstructive uropathy. 2. Otherwise no acute findings. Normal appendix. 3. Status post cholecystectomy. 4. Diverticulosis. Electronically signed by: Alton Merrill MD (08/27/2016 7:30 PM) DICTATED and SIGNED BY: ALTON MERRILL MD DATE: 08/27/161925 CC: DARIUS RODRÍGUEZ DO; PETER CUEVAS ~ Course & Med Decision Making Course & Med Decision Making Pertinent Labs and Imaging studies reviewed. (See chart for details) CT revealed 11 mm stone, with evidence of hydronephrosis, in the right mid ureter. Patient is feeling better after receiving analgesia, IV fluids and antiemetics in the ED. Discussed with the patient due to the size of the stone, and evidence of bacteria in the urine, that admission to the hospital for IV hydration, IV tendon management, and antibiotics with urology consultation is most appropriate. Patient is in full pain with this plan. Findings as above discussed with Dr. Kincaid of internal medicine, who evaluated the patient in the ED. Patient was accepted to her service as a full admission to the medical surgical floor as she has remained stable in the emergency department. Plan for the patient to be evaluated by Dr. Garcia of urology in the morning. Bridge orders entered per discussion. Mansi Disclaimer Dragon Disclaimer This electronic medical record was generated, in whole or in part, using a voice recognition dictation system. Departure Impression: Primary Impression: Renal calculi Disposition: ADMITTED INPATIENT Admitting Physician: Rosalie Kincaid Condition: IMPROVED DARIUS RODRÍGUEZ DO Aug 27, 2016 22:51
[2016-08-27 23:10] VITALS: BP 154/71
[2016-08-28] VITALS (16 sets, daily range): BP systolic 148–174; BP diastolic 68–93
[2016-08-28] MEDS: fentaNYL PF VIAL 100 MCG/2 ML VIAL IV PRN ×2 (01:38→04:46)
--- NOTE | 2016-08-28 02:30 | ACF ---
Admission Forms Criteria RENAL COLIC AND KIDNEY STONES Clinical Indications for Admission to Inpatient Care ( Place 'X' for any and all applicable criteria): Admission is indicated for ANY ONE of the following (1)(2)(3)(4): [X]I. Inpatient admission required rather than observation care (Also use Renal Colic and Kidney Stones: Observation Care Criteria as appropriate) because of ANY ONE of the following: [ ]a) Severe pain requiring acute inpatient management [ ]b) Urinary tract infection identified [ ]c) Vomiting that is severe or persistent [ ]d) IV fluid required rather than oral rehydration to replace significant ongoing (eg, for greater than 24 hours) losses (greater than 200 mL/hr or 3 L/m2 per day) [ ]e) Percutaneous or open drainage (eg, abscess, biliary tract) procedures [X]f) Other condition, treatment or monitoring requiring inpatient admission [ ]II. Impending acute renal failure [ ]III. Bilateral obstruction [ ]IV. Single kidney with obstruction [ ]V. Transplanted kidney with obstruction [ ]. Possible open surgical procedure needed (eg, pyonephrosis, stone removal not amendable to other means) [ ]VII. Hemodynamic instability Extended stay beyond goal length of stay may be needed for(2)(3)(31): [ ]a) Failed initial stone removal (32) [ ]b) Pyonephrosis [ ]c) Obstructive uropathy with urinary tract infection [ ]d) Procedure complications [ ]e) Comorbidities (22) The original [facility] content created by [employer] has been revised. The portions of the content which have been revised are identified through the use of italic text or in bold, and [facility] has neither reviewed nor approved the modified material. All other unmodified content is copyright [facility]. Please see references footnoted in the original [facility] edition 2016 Admission Criteria Met?: Yes BRENNAN BRUNO Aug 28, 2016 02:30
[2016-08-28 05:54] LABS: BASO # 0.1 x10^3/uL (0.0-0.2); BASO % 1 % (0-3); EOS % 1 % (0-3); HEMOGLOBIN 12.3 g/dL (12.0-15.5); LYMPH # 1.4 x10^3/uL (1.0-4.8); LYMPH % 15 % (24-48); MEAN CORPUSCULAR HEMOGLOBIN 27 pg (25-35); MEAN CORPUSCULAR HGB CONC 33 g/dL (31-37); MEAN CORPUSCULAR VOLUME 82 fL (79-100); MONO % 10 % (0-9); NEUT % 73 % (31-73); PLATELET COUNT 242 x10^3/uL (140-400); RED BLOOD COUNT 4.53 x10^6/uL (3.50-5.40); RED CELL DISTRIBUTION WIDTH 15.6 % (11.5-14.5); WHITE BLOOD COUNT 9.4 x10^3/uL (4.0-11.0)
[2016-08-28 06:10] LABS: CREATININE 1.2 mg/dL (0.6-1.0); GFR 45.4; POTASSIUM 4.3 mmol/L (3.5-5.1)
[2016-08-28] MEDS: FERROUS SULFATE 325 MG TABLET. PO SCH ×2 (08:00→16:54)
[2016-08-28] MEDS: FUROSEMIDE 40 MG TABLET. PO SCH (08:12)
--- NOTE | 2016-08-28 08:33 | PDOC ---
PROGRESS NOTES Subjective Subjective Pt. with right ureteral calculus Objective Objective Vital Signs Date Time Temp Pulse Resp B/P (MAP) Pulse Ox O2 Delivery O2 Flow Rate FiO2 08/28/16 07:38 98.3 76 16 156/73 (100) 94 Room Air 98.3 Intake and Output 08/28/16 07:00 Intake Total 1350 ml Output Total 400 ml Balance 950 ml Intake Oral 300 ml IV Total 1050 ml Output Urine Total 400 ml Physical Exam Physical Exam Tender right flank Plan Plan of Care Pt. with 11 mm right proximal ureteral stone with uti. I discussed with the pt. the options alternatives, benefits, risks, and possible complications of observation vs. cystoscopy with right retrograde pyelogram and right ureteral stent placement. Pt. understands and wishes to proceed with operation. Will proceed accordingly. Comment Review of Relevant I have reviewed the following items sanket (where applicable) has been applied. Labs Laboratory Tests Test 08/27/16 18:40 08/27/16 19:00 08/28/16 05:40 Urine Collection Type Void Urine Color Yellow Urine Clarity Clear Urine pH 5.5 Urine Specific [place] 1.010 Urine Protein Negative mg/dL (NEG-TRACE) Urine Glucose (UA) Negative mg/dL (NEG) Urine Ketones (Stick) Negative mg/dL (NEG) Urine Blood Large (NEG) Urine Nitrite Negative (NEG) Urine Bilirubin Negative (NEG) Urine Urobilinogen Dipstick 0.2 mg/dL (0.2 mg/dL) Urine Leukocyte Esterase Small (NEG) Urine RBC >40 /HPF (0-2) Urine WBC 11-20 /HPF (0-4) Urine Squamous Epithelial Cells Mod /LPF Urine Bacteria Moderate /HPF (0-FEW) Urine Hyaline Casts Few /HPF Urine Mucus Slight /LPF White Blood Count 11.3 x10^3/uL (4.0-11.0) 9.4 x10^3/uL (4.0-11.0) Red Blood Count 5.09 x10^6/uL (3.50-5.40) 4.53 x10^6/uL (3.50-5.40) Hemoglobin 13.7 g/dL (12.0-15.5) 12.3 g/dL (12.0-15.5) Hematocrit 42.2 % (36.0-47.0) 37.0 % (36.0-47.0) Mean Corpuscular Volume 83 fL (79-100) 82 fL (79-100) Mean Corpuscular Hemoglobin 27 pg (25-35) 27 pg (25-35) Mean Corpuscular Hemoglobin Concent 32 g/dL (31-37) 33 g/dL (31-37) Red Cell Distribution Width 15.2 % (11.5-14.5) 15.6 % (11.5-14.5) Platelet Count 273 x10^3/uL (140-400) 242 x10^3/uL (140-400) Neutrophils (%) (Auto) 68 % (31-73) 73 % (31-73) Lymphocytes (%) (Auto) 20 % (24-48) 15 % (24-48) Monocytes (%) (Auto) 9 % (0-9) 10 % (0-9) Eosinophils (%) (Auto) 2 % (0-3) 1 % (0-3) Basophils (%) (Auto) 1 % (0-3) 1 % (0-3) Neutrophils # (Auto) 7.7 x10^3uL (1.8-7.7) 6.8 x10^3uL (1.8-7.7) Lymphocytes # (Auto) 2.3 x10^3/uL (1.0-4.8) 1.4 x10^3/uL (1.0-4.8) Monocytes # (Auto) 1.1 x10^3/uL (0.0-1.1) 0.9 x10^3/uL (0.0-1.1) Eosinophils # (Auto) 0.2 x10^3/uL (0.0-0.7) 0.1 x10^3/uL (0.0-0.7) Basophils # (Auto) 0.1 x10^3/uL (0.0-0.2) 0.1 x10^3/uL (0.0-0.2) Sodium Level 139 mmol/L (136-145) 140 mmol/L (136-145) Potassium Level 3.9 mmol/L (3.5-5.1) 4.3 mmol/L (3.5-5.1) Chloride Level 101 mmol/L (98-107) 105 mmol/L (98-107) Carbon Dioxide Level 26 mmol/L (21-32) 25 mmol/L (21-32) Anion Gap 12 (6-14) 10 (6-14) Blood Urea Nitrogen 19 mg/dL (7-20) 15 mg/dL (7-20) Creatinine 1.3 mg/dL (0.6-1.0) 1.2 mg/dL (0.6-1.0) Estimated GFR (Cockcroft-Gault) 41.4 45.4 BUN/Creatinine Ratio 15 (6-20) Glucose Level 110 mg/dL (70-99) 141 mg/dL (70-99) Calcium Level 9.7 mg/dL (8.5-10.1) 9.0 mg/dL (8.5-10.1) Total Bilirubin 0.2 mg/dL (0.2-1.0) Aspartate Amino Transf (AST/SGOT) 18 U/L (15-37) Alanine Aminotransferase (ALT/SGPT) 21 U/L (14-59) Alkaline Phosphatase 199 U/L (46-116) Total Protein 8.4 g/dL (6.4-8.2) Albumin 4.0 g/dL (3.4-5.0) Albumin/Globulin Ratio 0.9 (1.0-1.7) Laboratory Tests Test 08/27/16 18:40 08/27/16 19:00 08/28/16 05:40 Urine Collection Type Void Urine Color Yellow Urine Clarity Clear Urine pH 5.5 Urine Specific [place] 1.010 Urine Protein Negative mg/dL (NEG-TRACE) Urine Glucose (UA) Negative mg/dL (NEG) Urine Ketones (Stick) Negative mg/dL (NEG) Urine Blood Large (NEG) Urine Nitrite Negative (NEG) Urine Bilirubin Negative (NEG) Urine Urobilinogen Dipstick 0.2 mg/dL (0.2 mg/dL) Urine Leukocyte Esterase Small (NEG) Urine RBC >40 /HPF (0-2) Urine WBC 11-20 /HPF (0-4) Urine Squamous Epithelial Cells Mod /LPF Urine Bacteria Moderate /HPF (0-FEW) Urine Hyaline Casts Few /HPF Urine Mucus Slight /LPF White Blood Count 11.3 x10^3/uL (4.0-11.0) 9.4 x10^3/uL (4.0-11.0) Red Blood Count 5.09 x10^6/uL (3.50-5.40) 4.53 x10^6/uL (3.50-5.40) Hemoglobin 13.7 g/dL (12.0-15.5) 12.3 g/dL (12.0-15.5) Hematocrit 42.2 % (36.0-47.0) 37.0 % (36.0-47.0) Mean Corpuscular Volume 83 fL (79-100) 82 fL (79-100) Mean Corpuscular Hemoglobin 27 pg (25-35) 27 pg (25-35) Mean Corpuscular Hemoglobin Concent 32 g/dL (31-37) 33 g/dL (31-37) Red Cell Distribution Width 15.2 % (11.5-14.5) 15.6 % (11.5-14.5) Platelet Count 273 x10^3/uL (140-400) 242 x10^3/uL (140-400) Neutrophils (%) (Auto) 68 % (31-73) 73 % (31-73) Lymphocytes (%) (Auto) 20 % (24-48) 15 % (24-48) Monocytes (%) (Auto) 9 % (0-9) 10 % (0-9) Eosinophils (%) (Auto) 2 % (0-3) 1 % (0-3) Basophils (%) (Auto) 1 % (0-3) 1 % (0-3) Neutrophils # (Auto) 7.7 x10^3uL (1.8-7.7) 6.8 x10^3uL (1.8-7.7) Lymphocytes # (Auto) 2.3 x10^3/uL (1.0-4.8) 1.4 x10^3/uL (1.0-4.8) Monocytes # (Auto) 1.1 x10^3/uL (0.0-1.1) 0.9 x10^3/uL (0.0-1.1) Eosinophils # (Auto) 0.2 x10^3/uL (0.0-0.7) 0.1 x10^3/uL (0.0-0.7) Basophils # (Auto) 0.1 x10^3/uL (0.0-0.2) 0.1 x10^3/uL (0.0-0.2) Sodium Level 139 mmol/L (136-145) 140 mmol/L (136-145) Potassium Level 3.9 mmol/L (3.5-5.1) 4.3 mmol/L (3.5-5.1) Chloride Level 101 mmol/L (98-107) 105 mmol/L (98-107) Carbon Dioxide Level 26 mmol/L (21-32) 25 mmol/L (21-32) Anion Gap 12 (6-14) 10 (6-14) Blood Urea Nitrogen 19 mg/dL (7-20) 15 mg/dL (7-20) Creatinine 1.3 mg/dL (0.6-1.0) 1.2 mg/dL (0.6-1.0) Estimated GFR (Cockcroft-Gault) 41.4 45.4 BUN/Creatinine Ratio 15 (6-20) Glucose Level 110 mg/dL (70-99) 141 mg/dL (70-99) Calcium Level 9.7 mg/dL (8.5-10.1) 9.0 mg/dL (8.5-10.1) Total Bilirubin 0.2 mg/dL (0.2-1.0) Aspartate Amino Transf (AST/SGOT) 18 U/L (15-37) Alanine Aminotransferase (ALT/SGPT) 21 U/L (14-59) Alkaline Phosphatase 199 U/L (46-116) Total Protein 8.4 g/dL (6.4-8.2) Albumin 4.0 g/dL (3.4-5.0) Albumin/Globulin Ratio 0.9 (1.0-1.7) Medications Current Medications Fentanyl Citrate (Fentanyl 2ml Vial) 50 mcg PRN Q15MIN PRN IV PAIN GREATER THAN 3/10 Last administered on 08/28/16 04:46; Start 08/27/16 at 19:00; Stop at 18:59 Sodium Chloride 1,000 ml @ 1,000 mls/hr Q1H IV Last administered on 08/27/16 19:20; Start 08/27/16 at 19:00; Stop 08/27/16 at 19:59; Status DC Ondansetron HCl (Zofran) 4 mg 1X ONCE IV Last administered on 08/27/16 19:00 ; Start 08/27/16 at 19:00; Stop 08/27/16 at 19:07; Status DC Ketorolac Tromethamine (Toradol) 10 mg 1X ONCE IV Last administered on 19:25; Start 08/27/16 at 19:00; Stop 08/27/16 at 19:07; Status DC Ceftriaxone Sodium 50 ml @ 100 mls/hr 1X ONCE IV Last administered on 20:00; Start 08/27/16 at 19:45; Stop 08/27/16 at 20:14; Status DC Ketorolac Tromethamine (Toradol) 15 mg PRN Q6HRS PRN IV PAIN; Start 08/27/16 at 21:15; Stop 09/01/16 at 21:14 Fentanyl Citrate (Fentanyl 2ml Vial) 50 mcg PRN Q2HR PRN IV pain; Start at 21:30 Acetaminophen/ Hydrocodone Bitart (Lortab 5/325) 1 tab PRN QID PRN PO pain; Start 08/27/16 at 21:15 Ceftriaxone Sodium 1 gm/ Sodium Chloride 50 ml @ 100 mls/hr Q24H IV ; Start at 20:00 Atorvastatin Calcium (Lipitor) 40 mg HS PO Last administered on 08/27/16 22:34 ; Start 08/27/16 at 22:30 Ferrous Sulfate (Feosol) 325 mg BIDWMEALS PO ; Start 08/28/16 at 08:00 Furosemide (Lasix) 40 mg DAILY PO ; Start 08/28/16 at 09:00 Levothyroxine Sodium (Synthroid) 150 mcg HS PO Last administered on 08/27/16 22:33; Start 08/27/16 at 22:30 Metoprolol Succinate (Toprol Xl) 200 mg HS PO Last administered on 08/27/16 22 :34; Start 08/27/16 at 22:30 Oxycodone/ Acetaminophen (Percocet 5/325) 1 tab PRN Q6HRS PRN PO pain; Start at 21:15 Meloxicam (Mobic) 15 mg HS PO Last administered on 08/27/16 22:33; Start 08/27 at 22:30 Nifedipine (Procardia Xl) 90 mg HS PO Last administered on 08/27/16 22:33; Start 08/27/16 at 22:30 Sodium Chloride 1,000 ml @ 125 mls/hr Q8H IV ; Start 08/27/16 at 21:30 Ondansetron HCl (Zofran) 4 mg PRN Q8HRS PRN IV NAUSEA/VOMITING Last administered on 08/28/16 06:20; Start 08/27/16 at 21:30; Stop 08/28/16 at 21:29 Fentanyl Citrate (Fentanyl 2ml Vial) 50 mcg PRN Q2HR PRN IV PAIN; Start at 21:30; Stop 08/28/16 at 21:29 Acetaminophen (Tylenol) 650 mg PRN Q4HRS PRN PO FEVER; Start 08/27/16 at 21:30 ; Stop 08/28/16 at 21:29 Active Scripts Active Reported Percocet 5-325 Mg Tablet (Oxycodone/Acetaminophen) 1 Each Tablet 1-2 Tab PO Q4- 6HRS last dose at 1515 may take next dose at 9pm Aspirin Ec (Aspirin) 325 Mg Tablet.dr 1 Tab PO BID last dose was this am next dose tonight with last meal Atorvastatin Calcium 40 Mg Tablet 1 Tab PO DAILY last dose last night next dose tonight Lasix (Furosemide) 40 Mg Tablet 40 Mg PO DAILY Last dose given: this am. Next dose due: tomorrow am Ferrous Sulfate 325 Mg Tablet 325 Mg PO BID Last dose given: 8:30 a.m. Next dose due: Take with next meal Continue taking until follow-up appt. with Dr. Abarca Cc (Nifedipine) 30 Mg Tablet.er 90 Mg PO HS Last dose given: last night at 9:00 p.m. Next dose due: Tonight Synthroid (Levothyroxine Sodium) 150 Mcg Tablet 150 Mcg PO HS Last dose given: last night at 9:00 p.m. Next dose due: Tonight Nabumetone 750 Mg Tablet 750 Mg PO HS Last dose given: last night at 9:00 p.m. Next dose due: Tonight Toprol Xl (Metoprolol Succinate) 100 Mg Tab.er.24h 200 Mg PO HS Last dose given: last night 9:00 p.m. Next dose due: Tonight Vitals/I & O Vital Sign - Last 24 Hours 08/27/16 08/27/16 08/27/16 08/27/16 18:40 19:26 19:30 20:06 Temp 98.7 98.7 Pulse 84 74 70 Resp 20 18 20 20 B/P (MAP) 173/84 (113) 163/82 (109) 152/87 (108) Pulse Ox 96 95 98 93 O2 Delivery Room Air Room Air Room Air Room Air 08/27/16 08/27/16 08/27/16 08/27/16 21:36 22:13 22:33 22:34 Pulse 72 72 72 Resp 20 18 B/P (MAP) 155/91 (112) 155/91 155/91 Pulse Ox 98 98 O2 Delivery Room Air Room Air 08/27/16 08/27/16 08/28/16 08/28/16 23:10 23:10 00:47 01:38 Temp 97.9 97.9 97.9 97.9 Pulse 77 77 Resp 18 18 B/P (MAP) 154/71 (98) 154/71 (98) Pulse Ox 96 96 O2 Delivery Room Air Room Air Room Air Room Air 08/28/16 08/28/16 08/28/16 08/28/16 03:10 04:46 05:19 07:10 Temp 97.9 97.9 Pulse 74 Resp 18 B/P (MAP) 148/70 (96) Pulse Ox 95 O2 Delivery Room Air Room Air Room Air Room Air 08/28/16 07:38 Temp 98.3 98.3 Pulse 76 Resp 16 B/P (MAP) 156/73 (100) Pulse Ox 94 O2 Delivery Room Air Intake and Output 08/27/16 08/27/16 08/28/16 15:00 23:00 07:00 Intake Total 1050 ml 300 ml Output Total 400 ml Balance 1050 ml -100 ml JABIER SCHULZ MD Aug 28, 2016 08:33
--- NOTE | 2016-08-28 09:31 | PDOC ---
PROGRESS NOTES Chief Complaint Chief Complaint 11mm renal stone with Obstruction HTN, Hyperlipidemia Hypothyroidism, rudy History of Present Illness History of Present Illness Pt seen and examined VSS LAUREN RN consult Pending Vitals Vitals Vital Signs Date Time Temp Pulse Resp B/P (MAP) Pulse Ox O2 Delivery O2 Flow Rate FiO2 08/28/16 07:38 98.3 76 16 156/73 (100) 94 Room Air 98.3 Physical Exam General: Alert, Oriented X3, Cooperative, No acute distress Heart: Regular rate, Normal S1, Normal S2 Lungs: Clear Abdomen: Normal bowel sounds, Soft, No tenderness, No hepatosplenomegaly, No masses Extremities: No clubbing, No cyanosis, No edema, Normal pulses, No tenderness/ swelling Skin: No rashes, No breakdown, No significant lesion Labs LABS Laboratory Tests Test 08/27/16 18:40 08/27/16 19:00 08/28/16 05:40 Urine Collection Type Void Urine Color Yellow Urine Clarity Clear Urine pH 5.5 Urine Specific [place] 1.010 Urine Protein Negative mg/dL (NEG-TRACE) Urine Glucose (UA) Negative mg/dL (NEG) Urine Ketones (Stick) Negative mg/dL (NEG) Urine Blood Large (NEG) Urine Nitrite Negative (NEG) Urine Bilirubin Negative (NEG) Urine Urobilinogen Dipstick 0.2 mg/dL (0.2 mg/dL) Urine Leukocyte Esterase Small (NEG) Urine RBC >40 /HPF (0-2) Urine WBC 11-20 /HPF (0-4) Urine Squamous Epithelial Cells Mod /LPF Urine Bacteria Moderate /HPF (0-FEW) Urine Hyaline Casts Few /HPF Urine Mucus Slight /LPF White Blood Count 11.3 x10^3/uL (4.0-11.0) 9.4 x10^3/uL (4.0-11.0) Red Blood Count 5.09 x10^6/uL (3.50-5.40) 4.53 x10^6/uL (3.50-5.40) Hemoglobin 13.7 g/dL (12.0-15.5) 12.3 g/dL (12.0-15.5) Hematocrit 42.2 % (36.0-47.0) 37.0 % (36.0-47.0) Mean Corpuscular Volume 83 fL (79-100) 82 fL (79-100) Mean Corpuscular Hemoglobin 27 pg (25-35) 27 pg (25-35) Mean Corpuscular Hemoglobin Concent 32 g/dL (31-37) 33 g/dL (31-37) Red Cell Distribution Width 15.2 % (11.5-14.5) 15.6 % (11.5-14.5) Platelet Count 273 x10^3/uL (140-400) 242 x10^3/uL (140-400) Neutrophils (%) (Auto) 68 % (31-73) 73 % (31-73) Lymphocytes (%) (Auto) 20 % (24-48) 15 % (24-48) Monocytes (%) (Auto) 9 % (0-9) 10 % (0-9) Eosinophils (%) (Auto) 2 % (0-3) 1 % (0-3) Basophils (%) (Auto) 1 % (0-3) 1 % (0-3) Neutrophils # (Auto) 7.7 x10^3uL (1.8-7.7) 6.8 x10^3uL (1.8-7.7) Lymphocytes # (Auto) 2.3 x10^3/uL (1.0-4.8) 1.4 x10^3/uL (1.0-4.8) Monocytes # (Auto) 1.1 x10^3/uL (0.0-1.1) 0.9 x10^3/uL (0.0-1.1) Eosinophils # (Auto) 0.2 x10^3/uL (0.0-0.7) 0.1 x10^3/uL (0.0-0.7) Basophils # (Auto) 0.1 x10^3/uL (0.0-0.2) 0.1 x10^3/uL (0.0-0.2) Sodium Level 139 mmol/L (136-145) 140 mmol/L (136-145) Potassium Level 3.9 mmol/L (3.5-5.1) 4.3 mmol/L (3.5-5.1) Chloride Level 101 mmol/L (98-107) 105 mmol/L (98-107) Carbon Dioxide Level 26 mmol/L (21-32) 25 mmol/L (21-32) Anion Gap 12 (6-14) 10 (6-14) Blood Urea Nitrogen 19 mg/dL (7-20) 15 mg/dL (7-20) Creatinine 1.3 mg/dL (0.6-1.0) 1.2 mg/dL (0.6-1.0) Estimated GFR (Cockcroft-Gault) 41.4 45.4 BUN/Creatinine Ratio 15 (6-20) Glucose Level 110 mg/dL (70-99) 141 mg/dL (70-99) Calcium Level 9.7 mg/dL (8.5-10.1) 9.0 mg/dL (8.5-10.1) Total Bilirubin 0.2 mg/dL (0.2-1.0) Aspartate Amino Transf (AST/SGOT) 18 U/L (15-37) Alanine Aminotransferase (ALT/SGPT) 21 U/L (14-59) Alkaline Phosphatase 199 U/L (46-116) Total Protein 8.4 g/dL (6.4-8.2) Albumin 4.0 g/dL (3.4-5.0) Albumin/Globulin Ratio 0.9 (1.0-1.7) Review of Systems Review of Systems co pain co weak Assessment and Plan Assessmemt and Plan 11mm renal stone with Obstruction HTN, Hyperlipidemia Hypothyroidism, rudy Plan consult ? will she need cysto? IV fluids Narcotics PTOT Home meds Strain urine Problems: Comment Review of Relevant I have reviewed the following items sanket (where applicable) has been applied. Labs Laboratory Tests Test 08/27/16 18:40 08/27/16 19:00 08/28/16 05:40 Urine Collection Type Void Urine Color Yellow Urine Clarity Clear Urine pH 5.5 Urine Specific [place] 1.010 Urine Protein Negative mg/dL (NEG-TRACE) Urine Glucose (UA) Negative mg/dL (NEG) Urine Ketones (Stick) Negative mg/dL (NEG) Urine Blood Large (NEG) Urine Nitrite Negative (NEG) Urine Bilirubin Negative (NEG) Urine Urobilinogen Dipstick 0.2 mg/dL (0.2 mg/dL) Urine Leukocyte Esterase Small (NEG) Urine RBC >40 /HPF (0-2) Urine WBC 11-20 /HPF (0-4) Urine Squamous Epithelial Cells Mod /LPF Urine Bacteria Moderate /HPF (0-FEW) Urine Hyaline Casts Few /HPF Urine Mucus Slight /LPF White Blood Count 11.3 x10^3/uL (4.0-11.0) 9.4 x10^3/uL (4.0-11.0) Red Blood Count 5.09 x10^6/uL (3.50-5.40) 4.53 x10^6/uL (3.50-5.40) Hemoglobin 13.7 g/dL (12.0-15.5) 12.3 g/dL (12.0-15.5) Hematocrit 42.2 % (36.0-47.0) 37.0 % (36.0-47.0) Mean Corpuscular Volume 83 fL (79-100) 82 fL (79-100) Mean Corpuscular Hemoglobin 27 pg (25-35) 27 pg (25-35) Mean Corpuscular Hemoglobin Concent 32 g/dL (31-37) 33 g/dL (31-37) Red Cell Distribution Width 15.2 % (11.5-14.5) 15.6 % (11.5-14.5) Platelet Count 273 x10^3/uL (140-400) 242 x10^3/uL (140-400) Neutrophils (%) (Auto) 68 % (31-73) 73 % (31-73) Lymphocytes (%) (Auto) 20 % (24-48) 15 % (24-48) Monocytes (%) (Auto) 9 % (0-9) 10 % (0-9) Eosinophils (%) (Auto) 2 % (0-3) 1 % (0-3) Basophils (%) (Auto) 1 % (0-3) 1 % (0-3) Neutrophils # (Auto) 7.7 x10^3uL (1.8-7.7) 6.8 x10^3uL (1.8-7.7) Lymphocytes # (Auto) 2.3 x10^3/uL (1.0-4.8) 1.4 x10^3/uL (1.0-4.8) Monocytes # (Auto) 1.1 x10^3/uL (0.0-1.1) 0.9 x10^3/uL (0.0-1.1) Eosinophils # (Auto) 0.2 x10^3/uL (0.0-0.7) 0.1 x10^3/uL (0.0-0.7) Basophils # (Auto) 0.1 x10^3/uL (0.0-0.2) 0.1 x10^3/uL (0.0-0.2) Sodium Level 139 mmol/L (136-145) 140 mmol/L (136-145) Potassium Level 3.9 mmol/L (3.5-5.1) 4.3 mmol/L (3.5-5.1) Chloride Level 101 mmol/L (98-107) 105 mmol/L (98-107) Carbon Dioxide Level 26 mmol/L (21-32) 25 mmol/L (21-32) Anion Gap 12 (6-14) 10 (6-14) Blood Urea Nitrogen 19 mg/dL (7-20) 15 mg/dL (7-20) Creatinine 1.3 mg/dL (0.6-1.0) 1.2 mg/dL (0.6-1.0) Estimated GFR (Cockcroft-Gault) 41.4 45.4 BUN/Creatinine Ratio 15 (6-20) Glucose Level 110 mg/dL (70-99) 141 mg/dL (70-99) Calcium Level 9.7 mg/dL (8.5-10.1) 9.0 mg/dL (8.5-10.1) Total Bilirubin 0.2 mg/dL (0.2-1.0) Aspartate Amino Transf (AST/SGOT) 18 U/L (15-37) Alanine Aminotransferase (ALT/SGPT) 21 U/L (14-59) Alkaline Phosphatase 199 U/L (46-116) Total Protein 8.4 g/dL (6.4-8.2) Albumin 4.0 g/dL (3.4-5.0) Albumin/Globulin Ratio 0.9 (1.0-1.7) Laboratory Tests Test 08/27/16 18:40 08/27/16 19:00 08/28/16 05:40 Urine Collection Type Void Urine Color Yellow Urine Clarity Clear Urine pH 5.5 Urine Specific [place] 1.010 Urine Protein Negative mg/dL (NEG-TRACE) Urine Glucose (UA) Negative mg/dL (NEG) Urine Ketones (Stick) Negative mg/dL (NEG) Urine Blood Large (NEG) Urine Nitrite Negative (NEG) Urine Bilirubin Negative (NEG) Urine Urobilinogen Dipstick 0.2 mg/dL (0.2 mg/dL) Urine Leukocyte Esterase Small (NEG) Urine RBC >40 /HPF (0-2) Urine WBC 11-20 /HPF (0-4) Urine Squamous Epithelial Cells Mod /LPF Urine Bacteria Moderate /HPF (0-FEW) Urine Hyaline Casts Few /HPF Urine Mucus Slight /LPF White Blood Count 11.3 x10^3/uL (4.0-11.0) 9.4 x10^3/uL (4.0-11.0) Red Blood Count 5.09 x10^6/uL (3.50-5.40) 4.53 x10^6/uL (3.50-5.40) Hemoglobin 13.7 g/dL (12.0-15.5) 12.3 g/dL (12.0-15.5) Hematocrit 42.2 % (36.0-47.0) 37.0 % (36.0-47.0) Mean Corpuscular Volume 83 fL (79-100) 82 fL (79-100) Mean Corpuscular Hemoglobin 27 pg (25-35) 27 pg (25-35) Mean Corpuscular Hemoglobin Concent 32 g/dL (31-37) 33 g/dL (31-37) Red Cell Distribution Width 15.2 % (11.5-14.5) 15.6 % (11.5-14.5) Platelet Count 273 x10^3/uL (140-400) 242 x10^3/uL (140-400) Neutrophils (%) (Auto) 68 % (31-73) 73 % (31-73) Lymphocytes (%) (Auto) 20 % (24-48) 15 % (24-48) Monocytes (%) (Auto) 9 % (0-9) 10 % (0-9) Eosinophils (%) (Auto) 2 % (0-3) 1 % (0-3) Basophils (%) (Auto) 1 % (0-3) 1 % (0-3) Neutrophils # (Auto) 7.7 x10^3uL (1.8-7.7) 6.8 x10^3uL (1.8-7.7) Lymphocytes # (Auto) 2.3 x10^3/uL (1.0-4.8) 1.4 x10^3/uL (1.0-4.8) Monocytes # (Auto) 1.1 x10^3/uL (0.0-1.1) 0.9 x10^3/uL (0.0-1.1) Eosinophils # (Auto) 0.2 x10^3/uL (0.0-0.7) 0.1 x10^3/uL (0.0-0.7) Basophils # (Auto) 0.1 x10^3/uL (0.0-0.2) 0.1 x10^3/uL (0.0-0.2) Sodium Level 139 mmol/L (136-145) 140 mmol/L (136-145) Potassium Level 3.9 mmol/L (3.5-5.1) 4.3 mmol/L (3.5-5.1) Chloride Level 101 mmol/L (98-107) 105 mmol/L (98-107) Carbon Dioxide Level 26 mmol/L (21-32) 25 mmol/L (21-32) Anion Gap 12 (6-14) 10 (6-14) Blood Urea Nitrogen 19 mg/dL (7-20) 15 mg/dL (7-20) Creatinine 1.3 mg/dL (0.6-1.0) 1.2 mg/dL (0.6-1.0) Estimated GFR (Cockcroft-Gault) 41.4 45.4 BUN/Creatinine Ratio 15 (6-20) Glucose Level 110 mg/dL (70-99) 141 mg/dL (70-99) Calcium Level 9.7 mg/dL (8.5-10.1) 9.0 mg/dL (8.5-10.1) Total Bilirubin 0.2 mg/dL (0.2-1.0) Aspartate Amino Transf (AST/SGOT) 18 U/L (15-37) Alanine Aminotransferase (ALT/SGPT) 21 U/L (14-59) Alkaline Phosphatase 199 U/L (46-116) Total Protein 8.4 g/dL (6.4-8.2) Albumin 4.0 g/dL (3.4-5.0) Albumin/Globulin Ratio 0.9 (1.0-1.7) Medications Current Medications Fentanyl Citrate (Fentanyl 2ml Vial) 50 mcg PRN Q15MIN PRN IV PAIN GREATER THAN 3/10 Last administered on 08/28/16 04:46; Start 08/27/16 at 19:00; Stop at 18:59 Sodium Chloride 1,000 ml @ 1,000 mls/hr Q1H IV Last administered on 08/27/16 19:20; Start 08/27/16 at 19:00; Stop 08/27/16 at 19:59; Status DC Ondansetron HCl (Zofran) 4 mg 1X ONCE IV Last administered on 08/27/16 19:00 ; Start 08/27/16 at 19:00; Stop 08/27/16 at 19:07; Status DC Ketorolac Tromethamine (Toradol) 10 mg 1X ONCE IV Last administered on 19:25; Start 08/27/16 at 19:00; Stop 08/27/16 at 19:07; Status DC Ceftriaxone Sodium 50 ml @ 100 mls/hr 1X ONCE IV Last administered on 20:00; Start 08/27/16 at 19:45; Stop 08/27/16 at 20:14; Status DC Ketorolac Tromethamine (Toradol) 15 mg PRN Q6HRS PRN IV PAIN; Start 08/27/16 at 21:15; Stop 09/01/16 at 21:14 Fentanyl Citrate (Fentanyl 2ml Vial) 50 mcg PRN Q2HR PRN IV pain; Start at 21:30 Acetaminophen/ Hydrocodone Bitart (Lortab 5/325) 1 tab PRN QID PRN PO pain; Start 08/27/16 at 21:15 Ceftriaxone Sodium 1 gm/ Sodium Chloride 50 ml @ 100 mls/hr Q24H IV ; Start at 20:00 Atorvastatin Calcium (Lipitor) 40 mg HS PO Last administered on 08/27/16 22:34 ; Start 08/27/16 at 22:30 Ferrous Sulfate (Feosol) 325 mg BIDWMEALS PO ; Start 08/28/16 at 08:00 Furosemide (Lasix) 40 mg DAILY PO ; Start 08/28/16 at 09:00 Levothyroxine Sodium (Synthroid) 150 mcg HS PO Last administered on 08/27/16 22:33; Start 08/27/16 at 22:30 Metoprolol Succinate (Toprol Xl) 200 mg HS PO Last administered on 08/27/16 22 :34; Start 08/27/16 at 22:30 Oxycodone/ Acetaminophen (Percocet 5/325) 1 tab PRN Q6HRS PRN PO pain; Start at 21:15 Meloxicam (Mobic) 15 mg HS PO Last administered on 08/27/16 22:33; Start 08/27 at 22:30 Nifedipine (Procardia Xl) 90 mg HS PO Last administered on 08/27/16 22:33; Start 08/27/16 at 22:30 Sodium Chloride 1,000 ml @ 125 mls/hr Q8H IV ; Start 08/27/16 at 21:30 Ondansetron HCl (Zofran) 4 mg PRN Q8HRS PRN IV NAUSEA/VOMITING Last administered on 08/28/16 06:20; Start 08/27/16 at 21:30; Stop 08/28/16 at 21:29 Fentanyl Citrate (Fentanyl 2ml Vial) 50 mcg PRN Q2HR PRN IV PAIN; Start at 21:30; Stop 08/28/16 at 21:29 Acetaminophen (Tylenol) 650 mg PRN Q4HRS PRN PO FEVER; Start 08/27/16 at 21:30 ; Stop 08/28/16 at 21:29 Active Scripts Active Reported Percocet 5-325 Mg Tablet (Oxycodone/Acetaminophen) 1 Each Tablet 1-2 Tab PO Q4- 6HRS last dose at 1515 may take next dose at 9pm Aspirin Ec (Aspirin) 325 Mg Tablet.dr 1 Tab PO BID last dose was this am next dose tonight with last meal Atorvastatin Calcium 40 Mg Tablet 1 Tab PO DAILY last dose last night next dose tonight Lasix (Furosemide) 40 Mg Tablet 40 Mg PO DAILY Last dose given: this am. Next dose due: tomorrow am Ferrous Sulfate 325 Mg Tablet 325 Mg PO BID Last dose given: 8:30 a.m. Next dose due: Take with next meal Continue taking until follow-up appt. with Dr. Abarca Cc (Nifedipine) 30 Mg Tablet.er 90 Mg PO HS Last dose given: last night at 9:00 p.m. Next dose due: Tonight Synthroid (Levothyroxine Sodium) 150 Mcg Tablet 150 Mcg PO HS Last dose given: last night at 9:00 p.m. Next dose due: Tonight Nabumetone 750 Mg Tablet 750 Mg PO HS Last dose given: last night at 9:00 p.m. Next dose due: Tonight Toprol Xl (Metoprolol Succinate) 100 Mg Tab.er.24h 200 Mg PO HS Last dose given: last night 9:00 p.m. Next dose due: [place] Vitals/I & O Vital Sign - Last 24 Hours 08/27/16 08/27/16 08/27/16 08/27/16 18:40 19:26 19:30 20:06 Temp 98.7 98.7 Pulse 84 74 70 Resp 20 18 20 20 B/P (MAP) 173/84 (113) 163/82 (109) 152/87 (108) Pulse Ox 96 95 98 93 O2 Delivery Room Air Room Air Room Air Room Air 08/27/16 08/27/16 08/27/16 08/27/16 21:36 22:13 22:33 22:34 Pulse 72 72 72 Resp 20 18 B/P (MAP) 155/91 (112) 155/91 155/91 Pulse Ox 98 98 O2 Delivery Room Air Room Air 08/27/16 08/27/16 08/28/16 08/28/16 23:10 23:10 00:47 01:38 Temp 97.9 97.9 97.9 97.9 Pulse 77 77 Resp 18 18 B/P (MAP) 154/71 (98) 154/71 (98) Pulse Ox 96 96 O2 Delivery Room Air Room Air Room Air Room Air 08/28/16 08/28/16 08/28/16 08/28/16 03:10 04:46 05:19 07:10 Temp 97.9 97.9 Pulse 74 Resp 18 B/P (MAP) 148/70 (96) Pulse Ox 95 O2 Delivery Room Air Room Air Room Air Room Air 08/28/16 07:38 Temp 98.3 98.3 Pulse 76 Resp 16 B/P (MAP) 156/73 (100) Pulse Ox 94 O2 Delivery Room Air Intake and Output 08/27/16 08/27/16 08/28/16 15:00 23:00 07:00 Intake Total 1050 ml 300 ml Output Total 400 ml Balance 1050 ml -100 ml ALEXIS HARRY III DO Aug 28, 2016 09:31
[2016-08-28] MEDS ORDERED: fentaNYL PF VIAL 100 MCG/2 ML VIAL IV PRN ×2 (14:30)
[2016-08-28] MEDS ORDERED: IV RINGERS,LACTATED 1000ML 1,000 ML IV SCH (14:30)
[2016-08-28] MEDS ORDERED: MORPHINE SULFATE 2 MG/ML DISP.SYRIN. IV PRN (14:30)
[2016-08-28] MEDS ORDERED: HYDROmorphone 2 MG/ML VIAL IV PRN (14:30)
[2016-08-28] MEDS ORDERED: ONDANSETRON PF 4 MG/2 ML VIAL. IV PRN (14:30)
[2016-08-28] MEDS ORDERED: LIDOCAINE 1% 1 ML SYRINGE. ID PRN (14:30)
[2016-08-28] MEDS ORDERED: PROCHLORPERAZINE 10 MG/2 ML VIAL. IV PRN (14:30)
[2016-08-28] MEDS ORDERED: LIDOCAINE 2% PF Vial for OR 5 ML VIAL. ONE (14:44)
[2016-08-28] MEDS ORDERED: PROPOFOL 20 ML IV ONE (14:44)
[2016-08-28] MEDS ORDERED: fentaNYL PF VIAL 100 MCG/2 ML VIAL ONE (14:44)
[2016-08-28] MEDS ORDERED: SCOPOLAMINE 1.5MG PATCH. TD SCH (15:00)
[2016-08-28] MEDS ORDERED: ceFAZolin 1GM IVPB FOR OMNI 1 GM/50 ML BAG IV ONE (15:00)
[2016-08-28] MEDS ORDERED: LIDOCAINE 2% JELLY 6ML IN APPLICATOR. ONE (15:01)
[2016-08-28] MEDS ORDERED: IOHEXOL 300 MG/ML 50 ML VIAL. ONE (15:01)
[2016-08-28] MEDS ORDERED: SEVOFLURANE 31 TO 60 MINUTES. IH ONE (15:19)
[2016-08-28] MEDS ORDERED: DEXAMETHASONE SOD PHOS 20 MG/5 ML VIAL. ONE (15:19)
[2016-08-28] MEDS ORDERED: ONDANSETRON PF 4 MG/2 ML VIAL. ONE (15:19)
--- NOTE | 2016-08-28 16:01 | PDOC4 ---
Operative Note Operative Note pre-op dx-right proximal ureteral stone with UTI Procedure-cystoscopy, right retrograde pyelogram, right ureteral stent placement surgeon-ileana caraballo-general Pt. to PACU in stable condition JABIER SCHULZ MD Aug 28, 2016 16:01
--- NOTE | 2016-08-28 19:59 | OP ---
DATE OF SURGERY: 08/28/2016 OPERATION: Cystoscopy, right retrograde pyelogram, right ureteral stent placement. SURGEON: Jabier Garcia M.D. ANESTHESIA: General. PREOPERATIVE DIAGNOSIS: Right proximal ureteral calculus with urinary tract infection. POSTOPERATIVE DIAGNOSIS: Right proximal ureteral calculus with urinary tract infection. INDICATIONS: The patient is a very pleasant 61-year-old white female with history of right flank and abdominal pain, found to have an 11 mm right proximal ureteral calculus with obstruction and UTI on admission UA. I discussed with the patient and her the options, alternatives, benefits, risks, and possible complications of watchful waiting versus surgical intervention with cystoscopy, right retrograde pyelogram, and right ureteral stent placement to get her unobstructed and then thoroughly treat the urinary tract infection prior to definitive therapy of the stone. She understands this and does wish to proceed with the operation. DESCRIPTION OF PROCEDURE: After obtaining informed consent, the patient was taken to operating room. After an excellent general anesthetic, the patient was placed in dorsal lithotomy position. Groin was prepped and draped in sterile fashion. The patient was already on IV antibiotics when she was preloaded again with one more dose of antibiotic prior to operation. Panendoscopy and cystoscopy were then performed with the 30 and 70 degree lenses and the 21-Norwegian cystoscope sheath. Bladder was entered and inspected. Both ureteral orifices were identified and found to be grossly patent. Bladder wall appeared smooth and without any lesions. No bladder tumors or bladder stones were identified. The patient's fluoroscopy was then performed, which showed radiopacity in the area of the right proximal ureter, approximately 2 inches above the right sacroiliac joint. Following this, right retrograde pyelogram was performed. Right distal ureter appeared within normal limits with no filling defects. As stated, mid ureter and then in the proximal ureter, the patient noted to have filling defect consistent with the patient's stone and then dilation of the ureter above that level on renal pelvis and calices. Following this, a floppy tipped ZIPwire was then able to be passed right up the right ureteral orifice up the right ureter past the stone to the right kidney and then following this, a 5-Norwegian Pollack catheter was passed over the ZIPwire past the stone to the right renal pelvis and the ZIPwire removed. The patient noted to have a hydronephrotic drip. Urine appeared yellow in color. Following this, the ZIPwire was then replaced and a retrograde pyelogram had shown again dilation of the renal pelvis and calices. Following this, the ZIPwire was then replaced and the Pollack catheter removed and following this, a 4.8 x 26 double-J stent was then passed up the ZIPwire, placing one curl in the right renal pelvis. The other curl in the bladder and the ZIPwire removed. Stent position was checked by fluoroscopy and direct vision, found to be in good position. Following this, bladder was then drained. The cystoscope withdrawn from the patient. The patient tolerated the procedure very well, was taken to recovery room in stable condition. Plan will be as to treat her urinary tract infection and then have her follow up with urologist over at [facility] in the next week to prepare for definitive therapy of the patient's stone, most likely with right-sided ESWL or ureteroscopy with laser lithotripsy. JABIER GARCIA MD DR: AIDAN/david JOB#: [id number] / [id number]
[2016-08-28] MEDS: ATORVASTATIN CALCIUM 40 MG TABLET. PO SCH (20:17)
[2016-08-28] MEDS: METOPROLOL SUCC 24HR ER 100 MG TAB.ER.24H. PO SCH (20:17)
[2016-08-28] MEDS: MELOXICAM 7.5 MG TABLET PO SCH (20:18)
[2016-08-28] MEDS: LEVOTHYROXINE 150 MCG TABLET PO SCH (20:19)
--- NOTE | 2016-08-29 01:10 | CONS ---
DATE OF CONSULTATION: 08/28/2016 LOCATION: The patient's room 668. HISTORY OF PRESENT ILLNESS: The patient is a very pleasant 61-year-old white female with onset of right flank and abdominal pain yesterday. The patient was seen in the Emergency Room and found to have an 11-mm right proximal ureteral calculus with obstruction. The patient also had a white count at 11.3, now at 9.4. Creatinine started at 1.3, now to 1.2. Urine showed greater than 40 red cells, 11-20 white cells and moderate bacteria. The patient was started on Rocephin. The patient has a temperature of 98.3. The patient with no prior history of any stones. PAST MEDICAL HISTORY: Significant for hypertension, hyperlipidemia and hypothyroidism. PAST SURGICAL HISTORY: The patient has had prior cholecystectomy and total knee replacement. PHYSICAL EXAMINATION: ABDOMEN: Soft with some mild tenderness in the right flank and abdomen. PLAN: I discussed with the patient and her her stone and we discussed the options, alternatives, benefits, risks and possible complications of observation versus intervention with cystoscopy, right retrograde pyelogram and right ureteral stent placement to get her unobstructed. She understands this and does wish to proceed with operation. We will therefore proceed accordingly. I certainly appreciate being allowed to participate in this patient's care. JABIER SCHULZ MD DR: AIDAN/david JOB#: [id number] / [id number]
[2016-08-29 03:00] VITALS: BP 178/80
[2016-08-29 04:25] LABS: BASO % 0 % (0-3); EOS % 0 % (0-3); HEMATOCRIT 39.5 % (36.0-47.0); HEMOGLOBIN 12.7 g/dL (12.0-15.5); LYMPH # 1.1 x10^3/uL (1.0-4.8); LYMPH % 11 % (24-48); MEAN CORPUSCULAR HEMOGLOBIN 27 pg (25-35); MEAN CORPUSCULAR HGB CONC 32 g/dL (31-37); MEAN CORPUSCULAR VOLUME 84 fL (79-100); MONO % 3 % (0-9); NEUT % 86 % (31-73); PLATELET COUNT 221 x10^3/uL (140-400); RED BLOOD COUNT 4.72 x10^6/uL (3.50-5.40); RED CELL DISTRIBUTION WIDTH 15.3 % (11.5-14.5); WHITE BLOOD COUNT 9.6 x10^3/uL (4.0-11.0)
[2016-08-29 07:00] VITALS: BP 142/70
[2016-08-29] MEDS: FUROSEMIDE 40 MG TABLET. PO SCH (08:37)
[2016-08-29] MEDS: FERROUS SULFATE 325 MG TABLET. PO SCH (08:37)
[2016-08-29 08:57] LABS: PLT ESTIMATE ADEQUATE (ADEQUATE)
--- NOTE | 2016-08-29 09:07 | PDOC ---
PROGRESS NOTES Subjective Subjective Pt. feeling well Objective Objective Vital Signs Date Time Temp Pulse Resp B/P (MAP) Pulse Ox O2 Delivery O2 Flow Rate FiO2 08/29/16 07:00 97.7 68 20 142/70 (94) 95 Room Air 97.7 08/28/16 16:12 8 Intake and Output 08/29/16 06:59 Intake Total 850 ml Output Total 2250 ml Balance -1400 ml Intake Oral 0 ml IV Total 850 ml Output Urine Total 2250 ml # Voids 2 # Bowel Movements 1 Physical Exam Physical Exam Voiding ok no pain Plan Plan of shelter with stent home on antibiotics F/U with [facility] at [facility] (Dr. Osullivan, Hari, Geovanni,Karime, Reyna) in next 1-2 weeks for eval for ESWL Comment Review of Relevant I have reviewed the following items sanket (where applicable) has been applied. Labs Laboratory Tests Test 08/27/16 18:40 08/27/16 19:00 08/28/16 05:40 08/29/16 03:55 Urine Collection Type Void Urine Color Yellow Urine Clarity Clear Urine pH 5.5 Urine Specific [place] 1.010 Urine Protein Negative mg/dL (NEG-TRACE) Urine Glucose (UA) Negative mg/dL (NEG) Urine Ketones (Stick) Negative mg/dL (NEG) Urine Blood Large (NEG) Urine Nitrite Negative (NEG) Urine Bilirubin Negative (NEG) Urine Urobilinogen Dipstick 0.2 mg/dL (0.2 mg/dL) Urine Leukocyte Esterase Small (NEG) Urine RBC >40 /HPF (0-2) Urine WBC 11-20 /HPF (0-4) Urine Squamous Epithelial Cells Mod /LPF Urine Bacteria Moderate /HPF (0-FEW) Urine Hyaline Casts Few /HPF Urine Mucus Slight /LPF White Blood Count 11.3 x10^3/uL (4.0-11.0) 9.4 x10^3/uL (4.0-11.0) 9.6 x10^3/uL (4.0-11.0) Red Blood Count 5.09 x10^6/uL (3.50-5.40) 4.53 x10^6/uL (3.50-5.40) 4.72 x10^6/uL (3.50-5.40) Hemoglobin 13.7 g/dL (12.0-15.5) 12.3 g/dL (12.0-15.5) 12.7 g/dL (12.0-15.5) Hematocrit 42.2 % (36.0-47.0) 37.0 % (36.0-47.0) 39.5 % (36.0-47.0) Mean Corpuscular Volume 83 fL (79-100) 82 fL (79-100) 84 fL (79-100) Mean Corpuscular Hemoglobin 27 pg (25-35) 27 pg (25-35) 27 pg (25-35) Mean Corpuscular Hemoglobin Concent 32 g/dL (31-37) 33 g/dL (31-37) 32 g/dL (31-37) Red Cell Distribution Width 15.2 % (11.5-14.5) 15.6 % (11.5-14.5) 15.3 % (11.5-14.5) Platelet Count 273 x10^3/uL (140-400) 242 x10^3/uL (140-400) 221 x10^3/uL (140-400) Neutrophils (%) (Auto) 68 % (31-73) 73 % (31-73) 86 % (31-73) Lymphocytes (%) (Auto) 20 % (24-48) 15 % (24-48) 11 % (24-48) Monocytes (%) (Auto) 9 % (0-9) 10 % (0-9) 3 % (0-9) Eosinophils (%) (Auto) 2 % (0-3) 1 % (0-3) 0 % (0-3) Basophils (%) (Auto) 1 % (0-3) 1 % (0-3) 0 % (0-3) Neutrophils # (Auto) 7.7 x10^3uL (1.8-7.7) 6.8 x10^3uL (1.8-7.7) 8.2 x10^3uL (1.8-7.7) Lymphocytes # (Auto) 2.3 x10^3/uL (1.0-4.8) 1.4 x10^3/uL (1.0-4.8) 1.1 x10^3/uL (1.0-4.8) Monocytes # (Auto) 1.1 x10^3/uL (0.0-1.1) 0.9 x10^3/uL (0.0-1.1) 0.3 x10^3/uL (0.0-1.1) Eosinophils # (Auto) 0.2 x10^3/uL (0.0-0.7) 0.1 x10^3/uL (0.0-0.7) 0.0 x10^3/uL (0.0-0.7) Basophils # (Auto) 0.1 x10^3/uL (0.0-0.2) 0.1 x10^3/uL (0.0-0.2) 0.0 x10^3/uL (0.0-0.2) Sodium Level 139 mmol/L (136-145) 140 mmol/L (136-145) Potassium Level 3.9 mmol/L (3.5-5.1) 4.3 mmol/L (3.5-5.1) Chloride Level 101 mmol/L (98-107) 105 mmol/L (98-107) Carbon Dioxide Level 26 mmol/L (21-32) 25 mmol/L (21-32) Anion Gap 12 (6-14) 10 (6-14) Blood Urea Nitrogen 19 mg/dL (7-20) 15 mg/dL (7-20) Creatinine 1.3 mg/dL (0.6-1.0) 1.2 mg/dL (0.6-1.0) Estimated GFR (Cockcroft-Gault) 41.4 45.4 BUN/Creatinine Ratio 15 (6-20) Glucose Level 110 mg/dL (70-99) 141 mg/dL (70-99) Calcium Level 9.7 mg/dL (8.5-10.1) 9.0 mg/dL (8.5-10.1) Total Bilirubin 0.2 mg/dL (0.2-1.0) Aspartate Amino Transf (AST/SGOT) 18 U/L (15-37) Alanine Aminotransferase (ALT/SGPT) 21 U/L (14-59) Alkaline Phosphatase 199 U/L (46-116) Total Protein 8.4 g/dL (6.4-8.2) Albumin 4.0 g/dL (3.4-5.0) Albumin/Globulin Ratio 0.9 (1.0-1.7) Segmented Neutrophils % 87 % (35-66) Lymphocytes % 11 % (24-48) Monocytes % 2 % (0-10) Platelet Estimate Adequate (ADEQUATE) Laboratory Tests Test 08/29/16 03:55 White Blood Count 9.6 x10^3/uL (4.0-11.0) Red Blood Count 4.72 x10^6/uL (3.50-5.40) Hemoglobin 12.7 g/dL (12.0-15.5) Hematocrit 39.5 % (36.0-47.0) Mean Corpuscular Volume 84 fL (79-100) Mean Corpuscular Hemoglobin 27 pg (25-35) Mean Corpuscular Hemoglobin Concent 32 g/dL (31-37) Red Cell Distribution Width 15.3 % (11.5-14.5) Platelet Count 221 x10^3/uL (140-400) Neutrophils (%) (Auto) 86 % (31-73) Lymphocytes (%) (Auto) 11 % (24-48) Monocytes (%) (Auto) 3 % (0-9) Eosinophils (%) (Auto) 0 % (0-3) Basophils (%) (Auto) 0 % (0-3) Neutrophils # (Auto) 8.2 x10^3uL (1.8-7.7) Lymphocytes # (Auto) 1.1 x10^3/uL (1.0-4.8) Monocytes # (Auto) 0.3 x10^3/uL (0.0-1.1) Eosinophils # (Auto) 0.0 x10^3/uL (0.0-0.7) Basophils # (Auto) 0.0 x10^3/uL (0.0-0.2) Segmented Neutrophils % 87 % (35-66) Lymphocytes % 11 % (24-48) Monocytes % 2 % (0-10) Platelet Estimate Adequate (ADEQUATE) Microbiology 08/27/16 Urine Culture - Preliminary, Resulted 08/27/16 Urine Culture Result 1 (YANI) - Preliminary, Resulted Medications Current Medications Fentanyl Citrate (Fentanyl 2ml Vial) 50 mcg PRN Q15MIN PRN IV PAIN GREATER THAN 3/10 Last administered on 08/28/16 04:46; Start 08/27/16 at 19:00; Stop at 14:27; Status DC Sodium Chloride 1,000 ml @ 1,000 mls/hr Q1H IV Last administered on 08/27/16 19:20; Start 08/27/16 at 19:00; Stop 08/27/16 at 19:59; Status DC Ondansetron HCl (Zofran) 4 mg 1X ONCE IV Last administered on 08/27/16 19:00 ; Start 08/27/16 at 19:00; Stop 08/27/16 at 19:07; Status DC Ketorolac Tromethamine (Toradol) 10 mg 1X ONCE IV Last administered on 19:25; Start 08/27/16 at 19:00; Stop 08/27/16 at 19:07; Status DC Ceftriaxone Sodium 50 ml @ 100 mls/hr 1X ONCE IV Last administered on 20:00; Start 08/27/16 at 19:45; Stop 08/27/16 at 20:14; Status DC Ketorolac Tromethamine (Toradol) 15 mg PRN Q6HRS PRN IV PAIN; Start 08/27/16 at 21:15; Stop 09/01/16 at 21:14 Fentanyl Citrate (Fentanyl 2ml Vial) 50 mcg PRN Q2HR PRN IV pain; Start at 21:30 Acetaminophen/ Hydrocodone Bitart (Lortab 5/325) 1 tab PRN QID PRN PO pain Last administered on 08/28/16 20:34; Start 08/27/16 at 21:15 Ceftriaxone Sodium 1 gm/ Sodium Chloride 50 ml @ 100 mls/hr Q24H IV Last administered on 08/28/16 20:35; Start 08/28/16 at 20:00 Atorvastatin Calcium (Lipitor) 40 mg HS PO Last administered on 08/28/16 20:17 ; Start 08/27/16 at 22:30 Ferrous Sulfate (Feosol) 325 mg BIDWMEALS PO Last administered on 08/29/16 08: 37; Start 08/28/16 at 08:00 Furosemide (Lasix) 40 mg DAILY PO Last administered on 08/29/16 08:37; Start 08/28/16 at 09:00 Levothyroxine Sodium (Synthroid) 150 mcg HS PO Last administered on 08/28/16 20:19; Start 08/27/16 at 22:30 Metoprolol Succinate (Toprol Xl) 200 mg HS PO Last administered on 08/28/16 20 :17; Start 08/27/16 at 22:30 Oxycodone/ Acetaminophen (Percocet 5/325) 1 tab PRN Q6HRS PRN PO pain; Start at 21:15 Meloxicam (Mobic) 15 mg HS PO Last administered on 08/28/16 20:18; Start 08/27 at 22:30 Nifedipine (Procardia Xl) 90 mg HS PO Last administered on 08/28/16 20:18; Start 08/27/16 at 22:30 Sodium Chloride 1,000 ml @ 125 mls/hr Q8H IV ; Start 08/27/16 at 21:30; Stop at 18:00; Status DC Ondansetron HCl (Zofran) 4 mg PRN Q8HRS PRN IV NAUSEA/VOMITING Last administered on 08/28/16 06:20; Start 08/27/16 at 21:30; Stop 08/28/16 at 21:29 ; Status DC Fentanyl Citrate (Fentanyl 2ml Vial) 50 mcg PRN Q2HR PRN IV PAIN; Start at 21:30; Stop 08/28/16 at 14:27; Status DC Acetaminophen (Tylenol) 650 mg PRN Q4HRS PRN PO FEVER; Start 08/27/16 at 21:30 ; Stop 08/28/16 at 21:29; Status DC Ondansetron HCl (Zofran) 4 mg PRN Q6HRS PRN IV NAUSEA/VOMITING; Start 08/28/16 at 14:30; Stop 08/28/16 at 23:00; Status DC Fentanyl Citrate (Fentanyl 2ml Vial) 25 mcg PRN Q5MIN PRN IV MILD PAIN; Start 08/28/16 at 14:30; Stop 08/28/16 at 23:00; Status DC Fentanyl Citrate (Fentanyl 2ml Vial) 50 mcg PRN Q5MIN PRN IV MODERATE PAIN; Start 08/28/16 at 14:30; Stop 08/28/16 at 23:00; Status DC Morphine Sulfate 1 mg PRN Q10MIN PRN IV SEVERE PAIN; Start 08/28/16 at 14:30; Stop 08/28/16 at 23:00; Status DC Ringer's Solution 1,000 ml @ 30 mls/hr Q24H IV Last administered on 08/28/16 14:30; Start 08/28/16 at 14:30; Stop 08/28/16 at 18:00; Status DC Lidocaine HCl 2 ml PRN 1X PRN ID PRIOR TO IV START; Start 08/28/16 at 14:30; Stop 08/28/16 at 23:00; Status DC Hydromorphone HCl (Dilaudid) 0.5 mg PRN Q10MIN PRN IV SEV PAIN, Second choice; Start 08/28/16 at 14:30; Stop 08/28/16 at 23:00; Status DC Prochlorperazine Edisylate (Compazine) 5 mg PACU PRN PRN IV NAUSEA, MRX1; Start 08/28/16 at 14:30; Stop 08/28/16 at 23:00; Status DC Lidocaine HCl (Lidocaine Pf 2% Vial) 5 ml STK-MED ONCE .ROUTE ; Start 08/28/16 at 14:44; Stop 08/28/16 at 14:45; Status DC Propofol 20 ml @ As Directed STK-MED ONCE IV ; Start 08/28/16 at 14:44; Stop at 14:45; Status DC Fentanyl Citrate (Fentanyl 2ml Vial) 100 mcg STK-MED ONCE .ROUTE ; Start at 14:44; Stop 08/28/16 at 14:45; Status DC Scopolamine (Transderm-Scop) 1 patch Q3DAYS TD Last administered on 08/28/16 15:00; Start 08/28/16 at 15:00 Iohexol (Omnipaque 300 Mg/ml) 50 ml STK-MED ONCE .ROUTE Last administered on 15:37; Start 08/28/16 at 15:01; Stop 08/28/16 at 15:02; Status DC Lidocaine HCl (Glydo (Lidocaine) Jelly) 6 alejandra STK-MED ONCE .ROUTE Last administered on 6/23/17at 15:37; Start 08/28/16 at 15:01; Stop 08/28/16 at 15:02 ; Status DC Cefazolin Sodium 50 ml @ As Directed STK-MED ONCE IV ; Start 08/28/16 at 15:07; Stop 08/28/16 at 15:08; Status DC Cefazolin Sodium 50 ml @ 100 mls/hr 1X PREOP PRN IV Pre Op dose; Start at 15:30; Stop 08/28/16 at 17:00; Status DC Dexamethasone Sodium Phosphate (Decadron) 20 mg STK-MED ONCE .ROUTE ; Start at 15:19; Stop 08/28/16 at 15:20; Status DC Ondansetron HCl (Zofran) 4 mg STK-MED ONCE .ROUTE ; Start 08/28/16 at 15:19; Stop 08/28/16 at 15:20; Status DC Sevoflurane (Ultane) 30 ml STK-MED ONCE IH ; Start 08/28/16 at 15:19; Stop 08/28 at 15:20; Status DC Active Scripts Active Reported Percocet 5-325 Mg Tablet (Oxycodone/Acetaminophen) 1 Each Tablet 1-2 Tab PO Q4- 6HRS last dose at 1515 may take next dose at 9pm Aspirin Ec (Aspirin) 325 Mg Tablet.dr 1 Tab PO BID last dose was this am next dose tonight with last meal Atorvastatin Calcium 40 Mg Tablet 1 Tab PO DAILY last dose last night next dose tonight Lasix (Furosemide) 40 Mg Tablet 40 Mg PO DAILY Last dose given: this am. Next dose due: tomorrow am Ferrous Sulfate 325 Mg Tablet 325 Mg PO BID Last dose given: 8:30 a.m. Next dose due: Take with next meal Continue taking until follow-up appt. with Dr. Abarca Cc (Nifedipine) 30 Mg Tablet.er 90 Mg PO HS Last dose given: last night at 9:00 p.m. Next dose due: Tonight Synthroid (Levothyroxine Sodium) 150 Mcg Tablet 150 Mcg PO HS Last dose given: last night at 9:00 p.m. Next dose due: Tonight Nabumetone 750 Mg Tablet 750 Mg PO HS Last dose given: last night at 9:00 p.m. Next dose due: Tonight Toprol Xl (Metoprolol Succinate) 100 Mg Tab.er.24h 200 Mg PO HS Last dose given: last night 9:00 p.m. Next dose due: Tonight Vitals/I & O Vital Sign - Last 24 Hours 08/28/16 08/28/16 08/28/16 08/28/16 11:04 14:30 15:58 16:00 Temp 98.0 98.5 98.5 98.0 98.5 98.5 Pulse 78 82 79 Resp 17 17 16 B/P (MAP) 161/80 (107) 162/81 (108) 144/74 Pulse Ox 94 96 100 O2 Delivery Room Air Room Air Room Air Mask O2 Flow Rate 8 8 08/28/16 08/28/16 08/28/16 08/28/16 16:12 16:27 16:42 16:57 Temp 98.5 98.5 Pulse 84 79 84 82 Resp 16 18 18 20 B/P (MAP) 173/79 196/90 185/83 157/79 Pulse Ox 100 92 92 91 O2 Delivery Simple Mask Room Air Room Air Room Air O2 Flow Rate 8 08/28/16 08/28/16 08/28/16 08/28/16 17:16 17:45 17:45 18:00 Temp 98.5 98.5 Pulse 84 81 81 81 Resp 20 B/P (MAP) 164/77 174/87 (116) 174/87 (116) 168/79 (108) Pulse Ox 93 O2 Delivery Room Air Room Air Room Air Room Air 08/28/16 08/28/16 08/28/16 08/28/16 18:05 18:15 18:15 18:30 Pulse 81 94 84 86 B/P (MAP) 168/79 (108) 174/91 (118) 170/87 (114) 172/83 (112) O2 Delivery Room Air Room Air Room Air Room Air 08/28/16 08/28/16 08/28/16 08/28/16 18:30 19:00 19:30 20:00 Pulse 88 86 84 B/P (MAP) 165/79 (107) 172/83 (112) 164/82 (109) O2 Delivery Room Air Room Air Room Air Room Air 08/28/16 08/28/16 08/28/16 08/28/16 20:00 20:17 20:18 20:30 Pulse 84 88 88 88 B/P (MAP) 170/87 (114) 165/79 165/79 165/79 (107) O2 Delivery Room Air Room Air 08/28/16 08/28/16 08/28/16 08/28/16 20:34 21:30 22:30 22:30 Temp 97.9 97.9 Pulse 85 73 Resp 20 B/P (MAP) 167/87 (113) 162/93 (116) Pulse Ox 93 O2 Delivery Room Air Room Air Room Air Room Air 08/28/16 08/29/16 08/29/16 23:00 03:00 07:00 Temp 97.9 97.7 97.7 97.9 97.7 97.7 Pulse 77 75 68 Resp 18 18 20 B/P (MAP) 158/68 (98) 178/80 (112) 142/70 (94) Pulse Ox 93 96 95 O2 Delivery Room Air Room Air Room Air Intake and Output 08/28/16 08/28/16 08/29/16 14:59 22:59 06:59 Intake Total 0 ml 850 ml 0 ml Output Total 1550 ml 400 ml 300 ml Balance -1550 ml 450 ml -300 ml JABIER SCHULZ MD Aug 29, 2016 09:07
[2016-08-29 11:00] VITALS: BP 149/71
--- NOTE | 2016-08-29 14:30 | DS ---
DATE OF DISCHARGE: 08/29/2016 ADMISSION DIAGNOSES: Renal calculi. DISCHARGE DIAGNOSIS: Resolving renal calculi with cystoscopy and stent placement. HOSPITAL COURSE: The patient is a pleasant 61-year-old female presented with symptomatic renal stone. She was admitted. We consulted Dr. Garcia. She went for a cystoscopy. She got a stent to the left ureter. Post-procedure, she is doing well. She wants to go home this morning. I did see and examined her. PHYSICAL EXAMINATION: HEART: Heart sounds were normal. LUNGS: Clear. ABDOMEN: Soft and nontender. EXTREMITIES: No edema. SKIN: No rashes. We plan to discharge. DISPOSITION: Home. ACTIVITY: As tolerated. DIET: Low sodium. MEDICATIONS: Please see the MRAD. TOTAL TIME: 34 minutes. ALEXIS HARRY DO DR: RAFIQ/david JOB#: [id number] / [id number]
== END 2016-08-29 13:34 | disposition home or self-care (01) | DRG 694 ==
LOC: ER 18:00 → 6 SOUTH 19:50
PROVIDERS: ADMIT Internal Medicine; ATTEND Internal Medicine
PROC: 0T768DZ Dilation of Right Ureter with Intraluminal Device, Via Natural or Artificial Opening Endoscopic (ICD-10-PCS; 2016-08-28)
PROC: BT1D1ZZ Fluoroscopy of Right Kidney, Ureter and Bladder using Low Osmolar Contrast (ICD-10-PCS; principal; 2016-08-28 15:30)
DX: N13.2 Hydronephrosis with renal and ureteral calculous obstruction (principal); K57.90 Diverticulosis of intestine, part unspecified, without perforation or abscess without bleeding; E66.9 Obesity, unspecified; I10 Essential (primary) hypertension; E78.5 Hyperlipidemia, unspecified; N17.9 Acute kidney failure, unspecified; E03.9 Hypothyroidism, unspecified; Z96.659 Presence of unspecified artificial knee joint; N13.9 Obstructive and reflux uropathy, unspecified; N39.0 Urinary tract infection, site not specified; Z82.3 Family history of stroke; Z68.37 Body mass index [BMI] 37.0-37.9, adult; Z90.49 Acquired absence of other specified parts of digestive tract; Z81.8 Family history of other mental and behavioral disorders; Z80.9 Family history of malignant neoplasm, unspecified; Z98.1 Arthrodesis status; Z87.442 Personal history of urinary calculi; Z79.82 Long term (current) use of aspirin; Z88.2 Allergy status to sulfonamides
CPT/HCPCS: 36415; 74176; 74420; 80048; 80053; 81001; 85007; 85027; 87086; 96361; 96365; 96366; 96375; C1769; C2617; J0690; J0696; J1100; J1885; J2405; J2704; J3010; J7030; J7120; Q9967; 99285-25